=== PATIENT | female | born 1975 | race Two or more races ===

== ENCOUNTER 2020-04-29 15:06 | Outpatient (REF) | payer OTHER, SELFPAY ==
--- NOTE | 2020-04-29 15:12 | MM_ITS ---
EXAMINATION: MM SCREENING DIGITAL BREAST TOMOSYNTHESIS, BILATERAL CLINICAL INFORMATION: Screening. Asymptomatic. The lifetime risk of breast cancer based on the Tyrer-Cuzick Model is 8.1%. COMPARISON: Mammography: August 10, 2018 and studies dating back to June 03, 2016 TECHNIQUE: Digital breast tomosynthesis is performed in both the craniocaudal and mediolateral oblique views along with computer-aided detection (CAD). Synthesized 2D images are generated from the tomosynthesis. FINDINGS: The breasts are almost entirely fatty (ACR BI-RADS breast composition Category a). There are no significant masses, abnormal calcifications, or other abnormalities. MM/MM tomosynthesis screening BI IMPRESSION: There are no significant changes from prior study. ASSESSMENT: BI-RADS 1: Negative RECOMMENDATION: Routine annual mammography screening. This patient's information was entered into a reminder system with a target due date for their next mammogram.
== END 2020-04-29 15:07 | disposition home or self-care (01) ==
LOC: HO.MAMMO 15:06
PROVIDERS: PCP Internal Medicine; Visit Provider Internal Medicine
DX: Z12.31 Encounter for screening mammogram for malignant neoplasm of breast (principal)
CPT/HCPCS: 77063; 77067

== ENCOUNTER 2020-11-13 08:37 | Outpatient (REF) | payer OTHER, SELFPAY ==
[2020-11-13 09:17] LABS: Estimated Average Glucose 140 mg/dL; Hemoglobin A1c % 6.5 %
[2020-11-13 09:39] LABS: Alanine Aminotransferase 9 U/L (0-31); Alkaline Phosphatase 64 U/L (39-117); Anion Gap 9 (12-20); Aspartate Amino Transferase 13 U/L (5-31); Bilirubin Total 0.5 mg/dL (0.0-1.0); Blood Urea Nitrogen 19 mg/dL (9-16); Calcium 9.3 mg/dL (8.4-10.2); Carbon Dioxide 28 mmol/L (22-29); Chloride 106 mmol/L (96-108); Estimated Glomerular Filt Rate > 60; Glucose Random 137 mg/dL (60-115); Potassium 4.7 mmol/L (3.3-5.1); Sodium 138 mmol/L (135-145)
== END 2020-11-13 08:38 | disposition home or self-care (01) ==
LOC: HO.LAB 08:37
PROVIDERS: PCP Internal Medicine; Visit Provider Internal Medicine
DX: E11.9 Type 2 diabetes mellitus without complications (principal); I10 Essential (primary) hypertension
CPT/HCPCS: 36415; 80053; 83036

== ENCOUNTER 2021-05-17 13:44 | Outpatient (REF) | payer OTHER, SELFPAY ==
--- NOTE | ~2021-05-17 | MM_ITS ---
EXAMINATION: MM SCREENING DIGITAL BREAST TOMOSYNTHESIS, BILATERAL CLINICAL INFORMATION: Screening. Asymptomatic. The lifetime risk of breast cancer based on the Tyrer-Cuzick Model is 7%. COMPARISON: Mammography: 04/29/2020, 08/10/2018, 06/30/2017 TECHNIQUE: Digital breast tomosynthesis is performed in both the craniocaudal and mediolateral oblique views along with computer-aided detection (CAD). Synthesized 2D images are generated from the tomosynthesis. FINDINGS: There are scattered areas of fibroglandular density (ACR BI-RADS breast composition Category b). Breast tissue composition borders on predominantly fatty. There are no significant masses, abnormal calcifications, or other abnormalities. Parenchymal pattern is similar to prior studies. There is no mass or architectural abnormality. Scattered bilateral benign round and dermal calcific. Again noted. The axilla and skin contours are unremarkable. MM/MM tomosynthesis screening BI IMPRESSION: No mammographic evidence of malignancy. ASSESSMENT: BI-RADS 2: Benign RECOMMENDATION: Routine annual mammography screening. This patient's information was entered into a reminder system with a target due date for their next mammogram.
== END 2021-05-17 13:45 | disposition home or self-care (01) ==
LOC: HO.MAMMO 13:44
PROVIDERS: Visit Provider Internal Medicine
DX: Z12.31 Encounter for screening mammogram for malignant neoplasm of breast (principal)
CPT/HCPCS: 77063; 77067

== ENCOUNTER 2021-06-29 08:06 | Outpatient (REF) | payer OTHER, SELFPAY ==
[2021-06-29 08:26] LABS: MANUAL DIFF FLAG NO
[2021-06-29 09:01] LABS: Basophils Percent Auto 0.5 % (0-2); Eosinophils Absolute Auto 0.1 X10*3/uL (0.0-0.4); Eosinophils Percent Auto 1.8 % (0-4); Hematocrit 42.2 % (37.0-47.0); Hemoglobin 13.9 g/dl (12.0-16.0); Imm Gran Abs Auto 0.03 X10*3/uL (0.00-0.03); Imm Gran Pct Auto 0.4 % (0.0-0.4); Lymphocytes Absolute Auto 1.8 X10*3/uL (1.2-4.9); Lymphocytes Percent Auto 24.7 % (20-40); Mean Corpuscular HGB Conc 32.9 g/dl (31.0-35.0); Mean Corpuscular Hemoglobin 30.3 pg (27.0-33.0); Mean Corpuscular Volume 92.1 fL (80.0-98.0); Monocytes Absolute Auto 0.6 X10*3/uL (0.1-1.2); Monocytes Percent Auto 7.7 % (2-11); Neutrophils Absolute Auto 4.7 x10*3/uL (2.0-8.3); Neutrophils Percent Auto 64.9 % (45-73); Platelet Count 296 X10*3/uL (160-400); Red Blood Count 4.58 X10*6/uL (4.20-5.50); Red Cell Distribution Width 12.5 % (11.0-16.0); White Blood Count 7.3 X10*3/uL (4.8-10.8)
[2021-06-29 09:09] LABS: Estimated Average Glucose 137 mg/dL; Hemoglobin A1c % 6.4 %
[2021-06-29 09:39] LABS: Creatinine Urine 112.79 mg/dL; Microalbum/Creatinine Ratio Ur 4.4 ug/mg cr
[2021-06-29 09:44] LABS: Alanine Aminotransferase 12 U/L (0-31); Albumin Level 4.1 g/dL (3.5-5.0); Alkaline Phosphatase 72 U/L (39-117); Anion Gap 11 (12-20); Aspartate Amino Transferase 16 U/L (5-31); Bilirubin Total 0.5 mg/dL (0.0-1.0); Blood Urea Nitrogen 14 mg/dL (9-16); Calcium 9.2 mg/dL (8.4-10.2); Carbon Dioxide 28 mmol/L (22-29); Chloride 103 mmol/L (96-108); Cholesterol 146 mg/dL; Estimated Glomerular Filt Rate > 60; Glucose Random 111 mg/dL (60-115); HDL Cholesterol 42 mg/dL; LDL Cholesterol Calculated 90 mg/dl; Potassium 4.4 mmol/L (3.3-5.1); Sodium 138 mmol/L (135-145); Total Protein 7.2 g/dL (6.5-8.0); Triglycerides 73 mg/dL
== END 2021-06-29 08:07 | disposition home or self-care (01) ==
LOC: HO.LAB 08:06
PROVIDERS: PCP Internal Medicine; Visit Provider Internal Medicine
DX: E11.9 Type 2 diabetes mellitus without complications (principal); I10 Essential (primary) hypertension; N92.4 Excessive bleeding in the premenopausal period; R80.9 Proteinuria, unspecified
CPT/HCPCS: 36415; 80053; 80061; 82043; 83036; 85025

== ENCOUNTER 2021-10-04 07:45 | Outpatient (REF) | payer OTHER, SELFPAY ==
[2021-10-04 08:27] LABS: Estimated Average Glucose 140 mg/dL; Hemoglobin A1c % 6.5 %
[2021-10-04 08:43] LABS: Alanine Aminotransferase 15 U/L (0-31); Albumin Level 4.2 g/dL (3.5-5.0); Alkaline Phosphatase 79 U/L (39-117); Anion Gap 12 (12-20); Aspartate Amino Transferase 17 U/L (5-31); Bilirubin Total 0.6 mg/dL (0.0-1.0); Blood Urea Nitrogen 16 mg/dL (9-16); Calcium 9.7 mg/dL (8.4-10.2); Carbon Dioxide 28 mmol/L (22-29); Chloride 102 mmol/L (96-108); Estimated Glomerular Filt Rate > 60; Glucose Random 119 mg/dL (60-115); Potassium 4.5 mmol/L (3.3-5.1); Sodium 137 mmol/L (135-145); Total Protein 7.7 g/dL (6.5-8.0)
== END 2021-10-04 07:46 | disposition home or self-care (01) ==
LOC: HO.LAB 07:45
PROVIDERS: PCP Internal Medicine; Visit Provider Internal Medicine
DX: Z00.00 Encounter for general adult medical examination without abnormal findings (principal); E78.00 Pure hypercholesterolemia, unspecified; E11.9 Type 2 diabetes mellitus without complications; I10 Essential (primary) hypertension
CPT/HCPCS: 36415; 80053; 83036

== ENCOUNTER 2022-02-01 08:07 | Outpatient (REF) | payer OTHER, SELFPAY ==
[2022-02-01 09:15] LABS: Estimated Average Glucose 128 mg/dL; Hemoglobin A1c % 6.1 %
[2022-02-01 09:42] LABS: Alanine Aminotransferase 14 U/L (0-31); Albumin Level 4.1 g/dL (3.5-5.0); Alkaline Phosphatase 70 U/L (39-117); Anion Gap 15 (12-20); Aspartate Amino Transferase 14 U/L (5-31); Bilirubin Total 0.7 mg/dL (0.0-1.0); Blood Urea Nitrogen 14 mg/dL (9-16); Carbon Dioxide 27 mmol/L (22-29); Chloride 100 mmol/L (96-108); Cholesterol 153 mg/dL; Estimated Glomerular Filt Rate > 60; Glucose Random 102 mg/dL (60-115); HDL Cholesterol 49 mg/dL; LDL Cholesterol Calculated 85 mg/dl; Potassium 4.3 mmol/L (3.3-5.1); Sodium 138 mmol/L (135-145); Total Protein 7.2 g/dL (6.5-8.0); Triglycerides 96 mg/dL
[2022-02-01 09:52] LABS: HIV AB/AG Nonreactive (Nonreactive); HIV Num 1 0.11 S/CO (0.00-0.99)
[2022-02-01 19:10] LABS: CT PCR NOT DETECTED (Not Detect.); NG PCR NOT DETECTED (Not Detect.)
[2022-02-07 22:52] LABS: Treponema pallidum Ab FTA ABS Nonreactive (Nonreactive)
== END 2022-02-01 08:08 | disposition home or self-care (01) ==
LOC: HO.LAB 08:07
PROVIDERS: PCP Internal Medicine; Visit Provider Internal Medicine
DX: Z11.3 Encounter for screening for infections with a predominantly sexual mode of transmission (principal); Z11.4 Encounter for screening for human immunodeficiency virus [HIV]; M54.50 Low back pain, unspecified; I10 Essential (primary) hypertension; E78.00 Pure hypercholesterolemia, unspecified; E11.9 Type 2 diabetes mellitus without complications
CPT/HCPCS: 80053; 80061; 83036; 86780; 87389; 87491; 87591

== ENCOUNTER 2022-03-09 13:42 | Outpatient (REF) | payer OTHER, SELFPAY ==
--- NOTE | ~2022-03-09 | US_ITS ---
EXAMINATION: US PELVIS CLINICAL INFORMATION: Pain COMPARISON: None TECHNIQUE: Ultrasound of the pelvis is performed using both transabdominal and transvaginal transducers along with Doppler. Transvaginal imaging is performed due to inadequate visualization transabdominally. FINDINGS: The uterus is anteverted and measures 10.4 x 4.1 x 4.8 cm in dimension. No focal uterine lesion is seen. Endometrial thickness measures 1.1 cm. The endometrium is very heterogeneous appearing with multiple small cystic areas. The ovaries are normal. The right ovary measures 2.8 x 2 x 1.6 cm. The left ovary measures 2.5 x 2.4 x 1.3 cm. There is no fluid in the pelvis. US/US pelvic and transvaginal IMPRESSION: Abnormal appearing endometrium with multiple small cystic areas. Short-term follow-up pelvic ultrasound to see if this is a persistent finding or tissue sampling recommended.
== END 2022-03-09 13:43 | disposition home or self-care (01) ==
LOC: HO.US 13:42
PROVIDERS: Visit Provider Obstetrics & Gynecology
DX: R10.2 Pelvic and perineal pain (principal)
CPT/HCPCS: 76830; 76856

== ENCOUNTER 2022-05-23 13:52 | Outpatient (REF) | payer OTHER, SELFPAY ==
--- NOTE | ~2022-05-23 | MM_ITS ---
EXAMINATION: MM SCREENING DIGITAL BREAST TOMOSYNTHESIS, BILATERAL CLINICAL INFORMATION: Screening. Asymptomatic. The lifetime risk of breast cancer based on the Tyrer-Cuzick Model is 4%. COMPARISON: Mammography: 05/17/2021, 04/29/2020, 08/10/2018 TECHNIQUE: Digital breast tomosynthesis is performed in both the craniocaudal and mediolateral oblique views along with computer-aided detection (CAD). Synthesized 2D images are generated from the tomosynthesis. Additional left CC view is provided. FINDINGS: There are scattered areas of fibroglandular density (ACR BI-RADS breast composition Category b). There are no significant masses, abnormal calcifications, or other abnormalities. Breast tissue composition borders on predominantly fatty. Background stromal markings are stable. There are again scattered benign round, rim, and dermal calcifications. No significant changes. MM/MM tomosynthesis screening BI IMPRESSION: No mammographic evidence of malignancy. ASSESSMENT: BI-RADS 1: Negative RECOMMENDATION: Routine annual mammography screening. This patient's information was entered into a reminder system with a target due date for their next mammogram.
== END 2022-05-23 13:53 | disposition home or self-care (01) ==
LOC: HO.MAMMO 13:52
PROVIDERS: PCP Internal Medicine; Visit Provider Internal Medicine
DX: Z12.31 Encounter for screening mammogram for malignant neoplasm of breast (principal)
CPT/HCPCS: 77063; 77067

== ENCOUNTER 2022-06-20 15:19 | Outpatient (REF) | payer OTHER, SELFPAY ==
[2022-06-20 16:37] LABS: Estimated Average Glucose 143 mg/dL; Hemoglobin A1c % 6.6 %
[2022-06-20 16:45] LABS: Alanine Aminotransferase 10 U/L (0-31); Albumin Level 4.3 g/dL (3.5-5.0); Alkaline Phosphatase 78 U/L (39-117); Anion Gap 17 (12-20); Aspartate Amino Transferase 15 U/L (5-31); Bilirubin Total 0.7 mg/dL (0.0-1.0); Blood Urea Nitrogen 12 mg/dL (9-16); Calcium 9.4 mg/dL (8.4-10.2); Carbon Dioxide 26 mmol/L (22-29); Chloride 98 mmol/L (96-108); Estimated Glomerular Filt Rate > 60; Glucose Random 125 mg/dL (60-115); Potassium 3.8 mmol/L (3.3-5.1); Sodium 137 mmol/L (135-145); Total Protein 7.7 g/dL (6.5-8.0)
[2022-06-20 17:02] LABS: Creatinine Urine 62.89 mg/dL; Microalbum/Creatinine Ratio Ur 71.5 ug/mg cr
== END 2022-06-20 15:20 | disposition home or self-care (01) ==
LOC: HO.LAB 15:19
PROVIDERS: PCP Internal Medicine; Visit Provider Internal Medicine
DX: E11.9 Type 2 diabetes mellitus without complications (principal); E78.00 Pure hypercholesterolemia, unspecified; I10 Essential (primary) hypertension; R82.90 Unspecified abnormal findings in urine
CPT/HCPCS: 36415; 80053; 82043; 83036; 87086

== ENCOUNTER 2022-12-06 08:04 | Outpatient (REF) | payer OTHER, SELFPAY ==
[2022-12-06 09:02] LABS: Estimated Average Glucose 148 mg/dL; Hemoglobin A1c % 6.8 %
[2022-12-06 09:31] LABS: Alanine Aminotransferase 15 U/L (0-31); Albumin Level 4.1 g/dL (3.5-5.0); Alkaline Phosphatase 82 U/L (39-117); Anion Gap 11 (12-20); Aspartate Amino Transferase 14 U/L (5-31); Bilirubin Total 0.7 mg/dL (0.0-1.0); Blood Urea Nitrogen 16 mg/dL (9-16); Calcium 9.5 mg/dL (8.4-10.2); Carbon Dioxide 29 mmol/L (22-29); Chloride 102 mmol/L (96-108); Estimated Glomerular Filt Rate > 60; Glucose Random 117 mg/dL (60-115); Potassium 4.2 mmol/L (3.3-5.1); Sodium 138 mmol/L (135-145); Total Protein 7.7 g/dL (6.5-8.0)
== END 2022-12-06 08:05 | disposition home or self-care (01) ==
LOC: HO.LAB 08:04
PROVIDERS: PCP Internal Medicine; Visit Provider Internal Medicine
DX: Z00.00 Encounter for general adult medical examination without abnormal findings (principal); E78.00 Pure hypercholesterolemia, unspecified; E11.9 Type 2 diabetes mellitus without complications; R80.9 Proteinuria, unspecified
CPT/HCPCS: 36415; 80053; 83036

== ENCOUNTER 2023-05-25 13:55 | Outpatient (REF) | payer OTHER, SELFPAY | END 2023-05-25 13:56 | disposition home or self-care (01) | LOC: HO.MAMMO 13:55 | PROVIDERS: PCP Internal Medicine; Visit Provider Internal Medicine | DX: Z12.31 Encounter for screening mammogram for malignant neoplasm of breast (principal) | CPT/HCPCS: 77063; 77067 ==

== ENCOUNTER → 2023-05-25 14:00 | Outpatient (BNV) | payer OTHER, SELFPAY | PROVIDERS: PCP Internal Medicine; Visit Provider Radiology Diagnostic Radiology | DX: Z12.31 Encounter for screening mammogram for malignant neoplasm of breast (principal) | CPT/HCPCS: 77063; 77067 ==

== ENCOUNTER 2023-09-19 08:26 | Outpatient (REF) | payer OTHER, SELFPAY ==
[2023-09-19 08:45] LABS: MANUAL DIFF FLAG NO
[2023-09-19 09:14] LABS: Basophils Absolute Auto 0.1 X10*3/uL (0.0-0.2); Basophils Percent Auto 0.6 % (0-2); Eosinophils Absolute Auto 0.1 X10*3/uL (0.0-0.4); Eosinophils Percent Auto 1.6 % (0-4); Hematocrit 44.3 % (37.0-47.0); Hemoglobin 14.8 g/dl (12.0-16.0); Imm Gran Abs Auto 0.04 X10*3/uL (0.00-0.03); Imm Gran Pct Auto 0.5 % (0.0-0.4); Lymphocytes Absolute Auto 2.1 X10*3/uL (1.2-4.9); Lymphocytes Percent Auto 24.8 % (20-40); Mean Corpuscular HGB Conc 33.4 g/dl (31.0-35.0); Mean Corpuscular Hemoglobin 30.5 pg (27.0-33.0); Mean Corpuscular Volume 91.3 fL (80.0-98.0); Mean Platelet Volume 10.9 fL (9.4-12.3); Monocytes Absolute Auto 0.6 X10*3/uL (0.1-1.2); Monocytes Percent Auto 7.7 % (2-11); Neutrophils Absolute Auto 5.4 x10*3/uL (2.0-8.3); Neutrophils Percent Auto 64.8 % (45-73); Platelet Count 275 X10*3/uL (160-400); Red Blood Count 4.85 X10*6/uL (4.20-5.50); Red Cell Distribution Width 12.4 % (11.0-16.0); White Blood Count 8.3 X10*3/uL (4.8-10.8)
[2023-09-19 09:23] LABS: Estimated Average Glucose 154 mg/dL
[2023-09-19 09:44] LABS: Alanine Aminotransferase 19 U/L (0-31); Albumin Level 4.4 g/dL (3.5-5.0); Alkaline Phosphatase 73 U/L (39-117); Anion Gap 12 (12-20); Aspartate Amino Transferase 18 U/L (5-31); Bilirubin Total 0.6 mg/dL (0.0-1.0); Blood Urea Nitrogen 17 mg/dL (9-16); Calcium 9.8 mg/dL (8.4-10.2); Carbon Dioxide 29 mmol/L (22-29); Chloride 102 mmol/L (96-108); Cholesterol 117 mg/dL (<200); Estimated Glomerular Filt Rate > 60; Glucose Random 119 mg/dL (60-115); HDL Cholesterol 43 mg/dL (>40); LDL Cholesterol Calculated 61 mg/dL (<100); Potassium 4.4 mmol/L (3.3-5.1); Sodium 139 mmol/L (135-145); Total Protein 7.9 g/dL (6.5-8.0); Triglycerides 65 mg/dL (<150)
[2023-09-19 10:49] LABS: Creatinine Urine 115.11 mg/dL; Microalbum/Creatinine Ratio Ur 20.8 ug/mg cr (<30)
== END 2023-09-19 08:27 | disposition home or self-care (01) ==
LOC: HO.LAB 08:26
PROVIDERS: PCP Internal Medicine; Visit Provider Internal Medicine
DX: E11.9 Type 2 diabetes mellitus without complications (principal); I10 Essential (primary) hypertension; L71.9 Rosacea, unspecified; Z68.42 Body mass index [BMI] 45.0-49.9, adult
CPT/HCPCS: 36415; 80053; 80061; 82043; 82570; 83036; 85025

== ENCOUNTER 2024-01-01 07:59 | Outpatient (REF) | payer OTHER, SELFPAY ==
[2024-01-01 09:29] LABS: Estimated Average Glucose 143 mg/dL; Hemoglobin A1c % 6.6 % (<6.0)
[2024-01-01 09:43] LABS: Alanine Aminotransferase 13 U/L (0-31); Albumin Level 4.2 g/dL (3.5-5.0); Alkaline Phosphatase 75 U/L (39-117); Anion Gap 9 (12-20); Aspartate Amino Transferase 16 U/L (5-31); Bilirubin Total 0.6 mg/dL (0.0-1.0); Blood Urea Nitrogen 15 mg/dL (9-16); Calcium 9.3 mg/dL (8.4-10.2); Carbon Dioxide 30 mmol/L (22-29); Chloride 103 mmol/L (96-108); Estimated Glomerular Filt Rate > 60; Glucose Random 107 mg/dL (60-115); Potassium 4.2 mmol/L (3.3-5.1); Sodium 138 mmol/L (135-145); Total Protein 7.5 g/dL (6.5-8.0)
== END 2024-01-01 08:00 | disposition home or self-care (01) ==
LOC: HO.LAB 07:59
PROVIDERS: PCP Internal Medicine; Visit Provider Internal Medicine
DX: Z00.00 Encounter for general adult medical examination without abnormal findings (principal); E78.00 Pure hypercholesterolemia, unspecified; I10 Essential (primary) hypertension; E11.9 Type 2 diabetes mellitus without complications
CPT/HCPCS: 36415; 80053; 83036

== ENCOUNTER 2024-05-19 07:55 | Outpatient (REF) | payer OTHER, SELFPAY ==
[2024-05-19 08:51] LABS: Estimated Average Glucose 146 mg/dL; Hemoglobin A1c % 6.7 % (<6.0); Total Hemoglobin (HGBA1C) 3738.3625 umol/L
[2024-05-19 09:11] LABS: Alanine Aminotransferase 15 U/L (0-31); Albumin Level 4.2 g/dL (3.5-5.0); Alkaline Phosphatase 84 U/L (39-117); Anion Gap 12 (12-20); Aspartate Amino Transferase 20 U/L (5-31); Bilirubin Total 0.9 mg/dL (0.0-1.0); Blood Urea Nitrogen 14 mg/dL (9-16); Calcium 9.2 mg/dL (8.4-10.2); Carbon Dioxide 26 mmol/L (22-29); Chloride 104 mmol/L (96-108); Estimated Glomerular Filt Rate > 60; Glucose Random 122 mg/dL (60-115); Potassium 4.3 mmol/L (3.3-5.1); Sodium 138 mmol/L (135-145); Total Protein 7.8 g/dL (6.5-8.0)
== END 2024-05-19 07:56 | disposition home or self-care (01) ==
LOC: HO.LAB 07:55
PROVIDERS: PCP Internal Medicine; Visit Provider Internal Medicine
DX: E11.9 Type 2 diabetes mellitus without complications (principal); B96.5 Pseudomonas (aeruginosa) (mallei) (pseudomallei) as the cause of diseases classified elsewhere; I10 Essential (primary) hypertension; Z68.42 Body mass index [BMI] 45.0-49.9, adult
CPT/HCPCS: 36415; 80053; 83036

== ENCOUNTER 2024-05-28 14:21 | Outpatient (REF) | payer OTHER, SELFPAY ==
--- NOTE | ~2024-05-28 | MM_ITS ---
EXAMINATION: MM SCREENING DIGITAL BREAST TOMOSYNTHESIS, BILATERAL CLINICAL INFORMATION: Screening. Asymptomatic. COMPARISON: Mammography: Comparison is made with available priors TECHNIQUE: Digital breast mammography with tomosynthesis is performed in both the craniocaudal and mediolateral oblique views along with computer-aided detection (CAD). FINDINGS: There are scattered areas of fibroglandular density (ACR BI-RADS breast composition Category b). There are no significant masses, abnormal calcifications, or other abnormalities. MM/MM tomosynthesis screening BI IMPRESSION: No mammographic evidence of malignancy. ASSESSMENT: BI-RADS BI-RADS 1 - Negative RECOMMENDATION: Routine annual mammography screening. 1 year F/U This examination should not preclude the clinical evaluation of a suspicious palpable abnormality. This patient's information was entered into a reminder system with a target due date for their next mammogram. Electronically signed by: Verona Olson DO 06/04/2024 11:21 AM [facility] [place]
== END 2024-05-28 14:22 | disposition home or self-care (01) ==
LOC: HO.MAMMO 14:21
PROVIDERS: PCP Internal Medicine; Referring Provider Obstetrics & Gynecology; Visit Provider Internal Medicine
DX: Z12.31 Encounter for screening mammogram for malignant neoplasm of breast (principal)
CPT/HCPCS: 77063; 77067

== ENCOUNTER → 2024-05-28 14:30 | Outpatient (BNV) | payer OTHER, SELFPAY | PROVIDERS: PCP Internal Medicine; Referring Provider Obstetrics & Gynecology; Visit Provider Internal Medicine | DX: Z12.31 Encounter for screening mammogram for malignant neoplasm of breast (principal) | CPT/HCPCS: 77063; 77067 ==

== ENCOUNTER 2024-08-21 07:49 | Outpatient (REF) | payer OTHER, SELFPAY ==
--- OUTSIDE RECORDS SUMMARY | 2024-08-21 07:53 | XMS_ITS | Clinical Summary ---
Author Organization [facility] Address [address] [place] [id number] Phone Care Team Providers [employer] Internet Sales Consultant Name Role Phone Nila Lebron MD Primary Care Provider [phone] Allergies Active Allergy Reactions Criticality Noted Date Comments Lisinopril Cough Low 09/25/2023 Oxycodone-Acetaminophen GI intolerance 05/22/19 25 Medications polyethylene glycol (Golytely) 236-22.74-6.74 -5.86 gram solution Take 4L by mouth once for one dose. May substitue any PEG. Starting at 6PM the night before your procedure drink 1 8oz glasses at your own pace until you complete half of the gallon. Finish 2nd half of the gallon 5 hours before your procedure. 4000 mL 4 Active bisacodyL (DULCOLAX) 5 mg EC tablet Take 2 tablets by mouth right before beginning bowel prep. See instructions provided by the office 2 tablet 4 Active losartan-hydroC HLOROthiazide (HYZAAR) 100-12.5 mg per tablet Take 1 tablet by mouth 1 (one) time each day. 4 Active Janumet 50-1,000 mg per tablet Take 1 tablet by mouth 2 (two) times a day. 4 Active atorvastatin (LIPITOR) 20 mg tablet Take 1 tablet (20 mg total) by mouth 1 (one) time each day. Active Jardiance 10 mg tablet Take 1 tablet (10 mg total) by mouth 1 (one) time each day in the morning. 4 Active Surgical History Surgery Date Site/Laterality Comments UTERINE FIBROID SURGERY SECTION, LOW TRANSVERSE Medical History Medical History Date Comments Hypertension Diabetes mellitus (CMS/HCC) Social History Tobacco Use Types Packs/Day Years Used Date Smoking Tobacco: Never Smokeless Tobacco: Never Tobacco Cessation:Counseling Given: Not Answered Alcohol Use Standard Drinks/Week Comments Yes 0 (1 standard drink = 0.6 oz pur e alcohol) OCC Interpersonal Safety Answer Date Record ed Physical Abuse 05/22/2024 Verbal Abuse 05/22/2024 Comments No Sex and Gender Information Value Date Recorded Sex Assigned at Not on file Legal Sex Female 4:55 AM EST Gender Identity Not on file Sexual Orientation Not on file Obstetrics History Last Filed Vital Signs Vital Sign Reading Time Taken Comments Blood Pressure 122/84 05/22/2024 10:53 AM EST Pulse 70 05/22/2024 10:53 AM EST Temperature 36.3 ??C (97.4 ??F) 05/22/2024 9:42 AM ES T Respiratory Rate 16 05/22/2024 10:53 AM EST Oxygen Saturation 100% 05/22/2024 10:53 AM EST Inhaled Oxygen Concentration - - Weight 104 kg (230 lb) 05/22/2024 9:42 AM EST Height 154.9 cm (5' 1 ) 05/22/2024 9:42 AM EST Body Mass Index 43.46 05/22/2024 9:42 AM EST Plan of Treatment Health Maintenance Due Date Last Done Comments Breast Cancer Screening 1975 DTaP,Tdap,and Td Vaccines (1 - Tdap) 1993 Hepatitis B Vaccines (1 of 3 - 19+ 3-dose series) 1993 Cervical Cancer Screening: Pap Smear 08/07/1995 Depression Screening 12/11/2023 HIV Screening 12/11/2023 Hepatitis C Screening 12/11/2023 Medicare Annual Wellness Visit 12/11/2023 Social Influencers of Health Screening 12/11/2023 COVID-19 Vaccine ( season) 2024 06/30/2021, 05/20/2021, 11/15/2020, Additional history exists Influenza Vaccine (#1) 2024 05/20/2021, 2020 Pneumococcal Vaccine: 50+ Years (1 of 1 - PCV) 2024 Zoster Vaccines (1 of 2) 2024 Colorectal Cancer Screening: Colonoscopy 05/22/2034 05/22/2024 HIB Vaccines Aged Out No longer eligi ble based on patient's age to complete this topic HPV Vaccines Aged Out No longer eligi ble based on patient's age to complete this topic Hepatitis A Vaccines Aged Out No long er eligible based on patient's age to complete this topic IPV Vaccines Aged Out No longer eligi ble based on patient's age to complete this topic MMR Vaccines Aged Out No longer eligi ble based on patient's age to complete this topic Meningococcal ACWY Vaccine Aged Out N o longer eligible based on patient's age to complete this topic Meningococcal B Vacine Aged Out No lo nger eligible based on patient's age to complete this topic Pneumococcal Vaccine: Pediatrics (0 to 5 Years) and At-Risk Patients (6 to 64 Years) Aged Out No longer eligible based on patient's age to complete this topic RSV Immunization Patients Under 20 months Aged Out No longer eligible based on patient's age to complete this topic Varicella Vaccines Aged Out No longer eligible based on patient's age to complete this topic Procedures Procedure Name Priority Date/Time Associated Diagnosis Comments COLONOSCOPY Routine 05/22/2024 10:30 AM EST Screen for colon cancer from Last 3 Months or Most Recently Relevant to Health Maintenance Results * COLONOSCOPY Anesthesia - MAC; [facility] ENDOSCOPY (05/22/2024 10:30 AM EST) Anatomical Region Laterality Modality Endoscopy 05/22/2024 10:1 6 AM EST Impressions 05/22/2024 10:32 AM EST - Internal hemorrhoids. ? - The examination was otherwise normal. ? - No specimens collected. Recommendation: ?- Discharge patient to home. ? - Repeat colonoscopy in 10 years for screening ? purposes. Narrative 05/22/2024 10:32 AM EST [facility] GI Patient Name: Becky Mckinnon Procedure Date: 05/22/2024 10:16 AM Date of : 1975 Age: 48 Gender: Female Note Status: Finalized Attending MD: Eli Kirk MD, Procedure Date No Time: 05/22/2024 Procedure: ? Colonoscopy Indications: ? Screening for colorectal malignant neoplasm Providers: ? Eli Kirk MD Referring MD: ?Eli Kirk MD Medicines: ? Monitored Anesthesia Care Complications: ? No immediate complications. Estimated Blood Loss: ? Estimated blood loss: none. Procedure: ? Pre-Anesthesia Assessment: ? - Prior to the procedure, a History and Physical was ? performed, and patient medications and allergies were ? reviewed. The patient is competent. The risks and ? benefits of the procedure and the sedation options and ? risks were discussed with the patient. All questions ? were answered and informed consent was obtained. ? Patient identification and proposed procedure were ? verified by the physician, the nurse, the linux server engineer ? and the driver license technician in the pre-procedure area in the ? endoscopy suite. Mental Status Examination: alert and ? oriented. Airway Examination: normal oropharyngeal ? airway and neck mobility. Respiratory Examination: ? clear to auscultation. CV Examination: normal. ? Prophylactic Antibiotics: The patient does not require ? prophylactic antibiotics. Prior Anticoagulants: The ? patient has taken no anticoagulant or antiplatelet ? agents. ASA Grade Assessment: II - A patient with mild ? systemic disease. After reviewing the risks and ? benefits, the patient was deemed in satisfactory ? condition to undergo the procedure. The anesthesia ? plan was to use monitored anesthesia care (MAC). ? Immediately prior to administration of medications, ? the patient was re-assessed for adequacy to receive ? sedatives. The heart rate, respiratory rate, oxygen ? saturations, blood pressure, adequacy of pulmonary ? ventilation, and response to care were monitored ? throughout the procedure. The physical status of the ? patient was re-assessed after the procedure. ? After I obtained informed consent, the scope was ? passed under direct vision. Throughout the procedure, ? the patient's blood pressure, pulse, and oxygen ? saturations were monitored continuously. The ? Colonoscope was introduced through the anus and ? advanced to the cecum, identified by appendiceal ? orifice and ileocecal valve. The colonoscopy was ? performed without difficulty. The patient tolerated ? the procedure well. The quality of the bowel ? preparation was good. Findings: ?The perianal and digital rectal examinations were ? normal. ? Internal hemorrhoids were found during retroflexion. ? The hemorrhoids were Grade I (internal hemorrhoids ? that do not prolapse). ? The exam was otherwise without abnormality. Procedure Code(s): ? --- Professional --- ? G0121, Colorectal cancer screening; colonoscopy on ? individual not meeting criteria for high risk Diagnosis Code(s): ? --- Professional --- ? Z12.11, Encounter for screening for malignant neoplasm ? of colon CPT copyright 2020 [employer]. All rights reserved. The codes documented in this report are preliminary and upon icd 9 coder review may be revised to meet current compliance requirements. Eli Kirk MD 05/22/2024 10:32:11 AM This report has been signed electronically.Eli Kirk MD Number of Addenda: 0 Note Initiated On: 05/22/2024 10:16 AM Scope Withdrawal Time: 0 hours 6 minutes 26 seconds Scope In: 10:21:05 AM Scope Out: 10:30:38 AM ? Endoscopy Department at [facility] - [address] [place] [address], ? [place] [address] Procedure Note Eli Kirk MD - 05/22/2024 [facility] GI Patient Name: Becky Mckinnon Procedure Date: 05/22/2024 10:16 AM Date of : 1975 Age: 48 Gender: Female Note Status: Finalized Attending MD: Eli Kirk MD, Procedure Date No Time: 05/22/2024 Procedure: Colonoscopy Indications: Screening for colorectal malignant neoplasm Providers: Eli Kirk MD Referring MD: Eli Kirk MD Medicines: Monitored Anesthesia Care Complications: No immediate complications. Estimated Blood Loss: Estimated blood loss: none. Procedure: Pre-Anesthesia Assessment: - Prior to the procedure, a History and Physicalwas performed, and patient medications and allergieswere reviewed. The patient is competent. The risks and benefits of the procedure and the sedation optionsand risks were discussed with the patient. Allquestions were answered and informed consent was obtained. Patient identification and proposed procedure were verified by the physician, the nurse, theanesthetist and the driver license technician in the pre-procedure area in the endoscopy suite. Mental Status Examination: alertand oriented. Airway Examination: normal oropharyngeal airway and neck mobility. Respiratory Examination: clear to auscultation. CV Examination: normal. Prophylactic Antibiotics: The patient does notrequire prophylactic antibiotics. Prior Anticoagulants: The patient has taken no anticoagulant or antiplatelet agents. ASA Grade Assessment: II - A patient withmild systemic disease. After reviewing the risks and benefits, the patient was deemed in satisfactory condition to undergo the procedure. The anesthesia plan was to use monitored anesthesia care (MAC). Immediately prior to administration of medications, the patient was re-assessed for adequacy to receive sedatives. The heart rate, respiratory rate, oxygen saturations, blood pressure, adequacy of pulmonary ventilation, and response to care were monitored throughout the procedure. The physical status ofthe patient was re-assessed after the procedure. After I obtained informed consent, the scope was passed under direct vision. Throughout theprocedure, the patient's blood pressure, pulse, and oxygen saturations were monitored continuously. The Colonoscope was introduced through the anus and advanced to the cecum, identified by appendiceal orifice and ileocecal valve. The colonoscopy was performed without difficulty. The patient tolerated the procedure well. The quality of the bowel preparation was good. Findings: The perianal and digital rectal examinations were normal. Internal hemorrhoids were found duringretroflexion. The hemorrhoids were Grade I (internal hemorrhoids that do not prolapse). The exam was otherwise without abnormality. Procedure Code(s): --- Professional --- G0121, Colorectal cancer screening; colonoscopy on individual not meeting criteria for high risk Diagnosis Code(s): --- Professional --- Z12.11, Encounter for screening for malignantneoplasm of colon CPT copyright 2020 [employer]. All rights reserved. The codes documented in this report are preliminary and upon icd 9 coder reviewmay be revised to meet current compliance requirements. Eli Kirk MD 05/22/2024 10:32:11 AM This report has been signed electronically.Eli Kirk MD Number of Addenda: 0 Note Initiated On: 05/22/2024 10:16 AM Scope Withdrawal Time: 0 hours 6 minutes 26 seconds Scope In: 10:21:05 AM Scope Out: 10:30:38 AM Endoscopy Department at [facility] - [address] [place] [id number] IMPRESSION: - Internal hemorrhoids. - The examination was otherwise normal. - No specimens collected. Recommendation: - Discharge patient to home. - Repeat colonoscopy in 10 years for screening purposes. Eli Kirk MD GI~PROCEDURE ORDERABLES Fin al Result from Last 3 Months or Most Recently Relevant to Health Maintenance Insurance [employer] - [place] Member Subscriber Plan / Payer (Ef fective 2011-Present) Name:Becky Mckinnon Relation to Subscriber:Self Name:Becky Mckinnon Payer ID:[id number] Type:Not on file Address: [facility] [id number] [address] Care Teams [employer] Internet Sales Consultant Relationship Specialty Start Date End Date Nila Lebron MD [address] [place] [address] [address] [place] [id number] [facility] - General 09/25/23
--- OUTSIDE RECORDS SUMMARY | 2024-08-21 07:53 | XMS_ITS | Data Portability ---
Author Organization [place] - [facility],, COMFORT MACHUCA MD Address [address] [address] Care Team Providers Care Field Care Manager Name Role Phone VERÓNICA FORD Primary Care Provider [phone] Assessment No assessment recorded. Plan of Treatment Reminders Order Date Submit Date Provider Last Modified By Organization Details Last Modified Time Details Appointments None recorded. Lab cytology report, thin prep, smear or scraping, cervical or vaginal 2023 024 RANDY [facility] (Centralized Electronic Ordering - All Locations), Patient Can Go To The Location Of Their Choice, 4 18:06:00 CBC w/ auto diff 2023 024 [email or web address] [facility] (Centralized Electronic Ordering - All Locations), Patient Can Go To The Location Of Their Choice, 5 07:23:43 iron + TIBC + ferritin, serum 2023 024 tmeczywor [facility] (Centralized Electronic Ordering - All Locations), Patient Can Go To The Location Of Their Choice, 5 07:23:43 TSH + free T4, serum 2023 024 tmeczywor [facility] (Centralized Electronic Ordering - All Locations), Patient Can Go To The Location Of Their Choice, 5 07:23:43 beta-HCG, qualitativ e, serum or plasma 2023 024 tmeczywor [facility] (Centralized Electronic Ordering - All Locations), Patient Can Go To The Location Of Their Choice, 5 07:23:43 hemoglobin , gastrointe stinal, stool 2023 024 [email or web address] 1 In-Office Order, Internal Use Only DO Not Attach Compendium DO Not Attach Compendium, Do Not Delete/merge, [id number] 10:08:56 pap test, thinprep, cervical 2022 023 [facility] (Centralized Electronic Ordering - All Locations), Patient Can Go To The Location Of Their Choice, [id number] 3 07:32:44 fecal occult blood, stool 2022 023 [email or web address] 1 In-Office Order, Internal Use Only DO Not Attach Compendium DO Not Attach Compendium, Do Not Delete/merge, [id number] 3 13:25:05 biopsy, endometria l [address] [facility] - [facility] Locations), Patient Can Go To The Location Of Their Choice, [id number] 2 07:32:14 pap test, thinprep, cervical 2021 [facility]22 [facility]), Patient Can Go To The Location Of Their Choice, [id number] 2 07:32:05 fecal occult blood, stool 2021 022 [email or web address] In-Office Order, Internal Use Only DO Not Attach Compendium DO Not Attach Compendium, Do Not Delete/merge, [id number] 2 15:36:47 Referral gynecologi c surgery referral - portion of hyperplast ic endometria l polyp, without atypia, removed in office, may be remaining polyp in situ, for possible D and C with hysterosco py 2021 022 [facility]? [facility], [address] [place] [address], [facility] [address], [place], [address], 3 08:02:51 Procedures None recorded. Surgeries None recorded. Imaging MAMMO, screening, digital, bilateral - Breast Aspiration and/or Biopsy if needed 2023 024 sayra [facility] (Mammo), [address] [facility] [place], [address], 4 10:44:39 MAMMO, screening, digital, bilateral - Breast Aspiration and/or Biopsy if needed 2022 023 [facility] (Mammo), [address] [facility] [place], [address], 4 07:41:07 MAMMO, screening, digital, bilateral 2021 022 [facility] (Mammo), [address] [facility] [place], [address], 4 07:40:29 US, pelvis, transabdom inal + transvagin al - deep dyspareuni a for a year 2021 022 [facility] (Imaging), [address] [place] [address], [place], [address], 2 15:39:14 Medication Orders Lo Loestrin Fe 1 mg-10 mcg (24)/10 mcg (2) tablet 2023 024 [id number], [address] [place], [place], [id number], 4 10:09:15 Patient TargetsNo targets recorded. Patient Instructions Encounter Date Encounter Id Patient Instructions Last Modified By Organization Details Last Modified Time 03/07/2022 [id number] learning about healthy weight Not available 03/07/2022 14:50:16 She is here as a new patient for annual exam. She has not had a assembly member since 2019, her PCP was doing her paps. She has type 2 diabetes. She notes that since she had her section 25 years ago she had had irregular menses, every 3 to 4 months. She [facility] she went for IVF, however she never conceived and no etiology was found. At that time she had a sonogram, 10 years ago, that showed scar tissue. She has had deep dyspareunia for a year, is not sure of the etiology, I feel bloated, afterward, and cramping pain. On exam her uterus appears ot be normal size, and mobile, and not tender to pressure. Check pelvic sonogram to assess possible endometrial polyp or other etiology of pelvic pain with dyspareunia. She appears to be doing well. They do not use control as she feels she has infertility, she is advised that this is not guaranteed, and that if she does not want fertility she should consider using control. She understands. Monthly self breast exam was taught, and stressed, and is advised to call if she discovers any new mass in the breast. Not available 03/07/2022 14:59:24 05/03/2022 [id number] abnormal uterine bleeding: care instructions Not available 05/03/2022 11:07:46 endometrial biopsy: [facility] Not available 05/03/2022 11:07:46 She is here for emb after sonogram shows a 1.1 cm endometrium with multiple small cystic areas. the sono was done because she has cramping midline pain and pressure after intercourse for years. She tolerated emb moderately well, it was crampy for a few minutes afterward. Await results. Not available 05/03/2022 11:08:53 05/18/2022 [id number] This visit is a phone telehealth visit. The patient consented to the visit by phone. The patient was at home at the time of the call and the provider and patient were the only people on the line. I was at [address] [facility], [address], [place], [place], at the time of the call. She had a pelvic sonogram ordered due to a complaint of cramping pain after intercourse, and intermittent midline pelvic cramping pain on and off for more than a year. The sonogram showed a heterogeneous, 1.1 cm endometrial thickness, with small cystic spaces. EMB removed a portion of a hyperplastic endometrial polyp without atypia. Today we are discussing future management. ____ New patient visit 03/07/22: Pt c/o abd pain and pressure off and on for a while. Pt states she also has abd pain after intercourse. Pt has also had issues with very irregular periods since having her son 25 years ago. Sometimes will skip months. Pt tried to have it treated but felt like she just kept getting pushed aside. ____ The deep dyspareunia nad the intermittent midline pelvic cramping are likely due to the presence of the polyp. the nature of endometrial hyperplasia was discussed with the patient. As she is symptomatic from this polyp, ad we need to ensure that the entire polyp was removed as the histology has hyperplasia, she would like to proceed to hysteroscopy with D and C. The procedure was discussed in detail, pre-op, post-op, intra-op management discussed, all questions answered. She has well controlled type 2 diabetes, and well controlled HTN. She has irregular cycles since the of her child. She did not have excessive blood loss at delivery, and her thyroid testing has been fine. She believes she has infertility and they use no control. Will refer for possible surgery. The patient was agreeable to this plan. She is aware of the limitations caused by the covid restrictions, and this phone call, but was appreciative of the efforts to complete the evaluation. Face to face discussion 30 minutes chevy Not available 05/18/2022 08:53:48 03/08/2023 [id number] learning about healthy weight chevy Not available 03/08/2023 13:25:05 She is here for annual exam, doing much better. she had a D and C last year that removed portion of a large endometrial polyp, EMB removed a portion of a hyperplastic endometrial polyp without atypia. After the surgery she notes that her pelvic pain, cramping and dyspareunia is 80% improved. Menses are every 3 months, having moderate vasomotor symptoms, does not feel she needs intervention. Note from 05/11: She is here for emb after sonogram shows a 1.1 cm endometrium with multiple small cystic areas. the sono was done because she has cramping midline pain and pressure after intercourse for years. She tolerated emb moderately well, it was crampy for a few minutes afterward. Note from 02/2022: She is here as a new patient for annual exam. She has not had a assembly member since 2019, her PCP was doing her paps. She has type 2 diabetes. She notes that since she had her section 25 years ago she had had irregular menses, every 3 to 4 months. She had a [facility] she went for IVF, however she never conceived and no etiology was found. At that time she had a sonogram, 10 years ago, that showed scar tissue. She has had deep dyspareunia for a year, is not sure of the etiology, I feel bloated, afterward, and cramping pain. On exam her uterus appears ot be normal size, and mobile, and not tender to pressure. Check pelvic sonogram to assess possible endometrial polyp or other etiology of pelvic pain with dyspareunia. She appears to be doing well. Monthly self breast exam was taught, and stressed, and is advised to call if she discovers any new mass in the breast. The issues of perimenopause were discussed at length. She is aware that her menses will become erratic, and she may miss menses more frequently. We discussed the possible symptoms of hot flashes, night sweats, insomnia, iritability, short term memory issues, and the possibility of developing anxiety or panic attacks. We reviewed why this occurs, on a physiologic basis, as her estrogen levels diminish. We discussed ways to diminish the symptoms, including avoidance of caffeine and alcohol, cooler temperature rooms, and wearing open and loose weave absorbant clothing, or nothing at all, at night. We touched on the social and life issues that can arise at this time due to the hormonal instability. We discussed ways to manage the symptoms with herbal therapy. The use of black cohash, specifically Remifemin, is discussed, and she is advised that she must take it twice a day for a month prior to trying to asses whether there is any benefit, as it takes a month to begin to notice improvement. She is advised to read The Change Before The Change , by Dr. Herring. All questions answered. chevy Not available 03/08/2023 13:25:47 04/03/2024 [id number] learning about healthy weight chevy Not available 04/03/2024 10:08:20 heavy menstrual periods: care instructions chevy Not available 04/03/2024 10:09:10 She is here for annual, she is having sever hot flashes and night sweats, mood instability, and is sexually active without control, desires something. She had no menses for 8 months, then had a heavy menses in November, since then menses are mostly every month ,but LMP was 02/20/24 she she is overdue. Note from 2022: She is here for annual exam, doing much better. she had a D and C last year that removed portion of a large endometrial polyp, EMB removed a portion of a hyperplastic endometrial polyp without atypia. After the surgery she notes that her pelvic pain, cramping and dyspareunia is 80% improved. Menses are every 3 months, having moderate vasomotor symptoms, does not feel she needs intervention. Check labs for menorrhagia. We discussed all options for control and she desires the OCP, is a never smoker, no family history of stroke. Will use Lo Loestrin as it has an extended duration of action and also lowest dose as she is age 48, and also wants to help manage her perimenopause symptoms. We discussed the Sunday start process for the OCP, that the pill will not be effective for the first month of use, and the interaction with antibiotics. We discussed the need to use a condom during antibiotic use and also for a minimum of three weeks following the use of antibiotics. We discused interactions with some herbal and OTC meds, such as Saint Pa's Wort. Possible side effects, and the stated risk of one in 10,000 to develop a blood clot/ DVT/PE were also discussed. All questions answered, rx to be called in to pharmacy. She is given a free sample pack to start. She appears to be doing well. Monthly self breast exam was taught, and stressed, and is advised to call if she discovers any new mass in the breast. Not available 04/03/2024 10:41:56 Reason for Referral Gynecologic Surgery Referral for Polyp of corpus uteri portion of hyperplastic endometrial polyp, without atypia, removed in office, may be remaining polyp in situ, for possible D and C with hysteroscopy Referring Physician: Comfort Machuca, Gynecology, Encounter Date: 05/18/2022 Results Created Date Observation Date Name Description Value Unit Range Abnormal Flag Note LastModifiedBy Organization Detail LastModifiedTime 03/07/2003/07/2022 [facility] results Patie nt Name: FINA CROFT nt : 1975 (Age: 46) Lab Acces myrna #: [id number] Colle ction Date: 03/07 Acces myrna Date: 03/08 Sign Out Date: 03/13 Tissu e Sourc e: 1: THINP REP [employer] PAP TEST, CERVI IGOR: Final Diagn osis: NEGAT SAYDA FOR INTRA EPITH ELIAL LESIO N OR MALIG MAGAN . Satis facto ry for evalu ation . Endoc ervic al/tr ansfo rmati on zone ABSEN T. Clini igor Histo ry: Date of Last Menst rual Perio d: Menst rual Histo ry: not avail able Contr acept sayda Histo ry: not avail able Ancil isha Testi ng: HPV (ASCU S) Case image d by the ThinP rep Imagi ng Syste m with jose madsen or iqra duarte. Perfo rmed at [facility] ate Refer ence Labor atory depar tment of Cytol ogy, [address] [place] Clini igor Histo ry (othe r): danny flores Phone #: [phone], On-Ca ll Patho logis t: [id number] Not Available [facility] (Centralized Electronic Ordering - All Locations) Patient Can Go To The Location Of Their Choice, [id number] 03/13/2022 09:07:33 03/07/20 22 03/07/2022 fecal occul t blood , stool Occult Blood negati ve Not Available In-Office Order Internal Use Only DO Not Attach Compendium DO Not Attach Compendium, Do Not Delete/merge, [id number] 03/07/2022 14:00:26 05/03/20 22 05/03/2022 [facility] SURGI IGOR PATHO LOGY results Jason nt Name: FINA CROFT Lab Acces myrna #: [id number] Jason nt : 1975 (Age: 46) Colle ction Date: 05/03 Acces myrna Date: 05/03 Sign Out Date: 05/08 Tissu e Sourc e: 1:END OMETR IAL BIOPS Y Final Diagn osis: Endom etriu m, biops y: - Endom etria l polyp , hyper plast ic type, witho ut atypi a. - Scant backg round strip s of super ficia l endom etriu m, sugge stive of atrop hic endom etriu m. Prima ry Patho logis t:Rosi Gordon M.D. elect devyn cardozo carlos d out by: Rosi Gordon M.D. / PARK Clini igor Histo ry: Ultra sound thick ened endom etriu m Gross Descr iptio n: Label ed EMB . Recei alex in forma kris and filte red is a 2.3 x 1.7 x 0.[address] of red, madrigal tissu e with some trans lucen t mucus . The speci men is entir bettye submi tted. 1-mul tiple piece s, x2. (HG)* Phone #: [phone], On-Ca ll Patho logis t: [id number] Not Available [facility] (Centralized Electronic Ordering - All Locations) Patient Can Go To The Location Of Their Choice, [id number] 05/08/2022 10:37:15 03/08/20 23 03/08/2023 [facility] CYTOL [facility] results Jason nt Name: FINA CROFT nt : 1975 (Age: 47) Lab Acces myrna #: [id number] Colle ction Date: 03/08 Acces myrna Date: 03/08 Sign Out Date: 03/14 Tissu e Sourc e: 1: THINP REP [employer] PAP TEST, CERVI IGOR: Final Diagn osis: NEGAT SAYDA FOR INTRA EPITH ELIAL LESIO N OR MALIG MAGAN . Satis facto ry for evalu ation . Endoc ervic al/tr ansfo rmati on zone ABSEN T. Clini igor Histo ry: Date of Last Menst rual Perio d: not avail able Menst rual Histo ry: not avail able Contr acept sayda Histo ry: not avail able Ancil isha Testi ng: HPV (ASCU S) Case image d by the ThinP rep Imagi ng Syste m with jose madsen or iqra summers Perfo rmed at [facility] ate Refer ence Labor atory depar tment of Cytol ogy, [address] [place] Clini igor Histo ry (othe r): Z01.4 19, routi ne scree n, LPS 03/07 neg Phone #: [phone], On-Ca ll Patho logis t: [id number] Not Available [facility] (Centralized Electronic Ordering - All Locations) Patient Can Go To The Location Of Their Choice, [id number] 03/14/2023 11:21:07 03/08/20 23 03/08/2023 fecal occul t blood , stool Occult Blood negati ve Not Available In-Office Order Internal Use Only DO Not Attach Compendium DO Not Attach Compendium, Do Not Delete/merge, [id number] 03/08/2023 12:56:03 04/03/20 24 04/08/2024 IGP, RFX APTIM A HPV ASCU diagnosis: Commen t NEGAT SAYDA FOR INTRA EPITH ELIAL LESIO N OR MALIG MAGAN . Not Available [facility] ([facility][1] Lab) [address] [facility], [place], [address], 04/08/2024 18:06:00 04/03/20 24 04/08/2024 IGP, RFX APTIM A HPV ASCU specimen adequacy: Bert hirsch Satis facto ry for evalu ation . Not Available [facility] ([facility][1] Lab) [address] [place], [address], 04/08/2024 18:06:00 04/03/20 24 04/08/2024 IGP, RFX APTIM A HPV ASCU clinician provided ICD10: Bert hirsch Z01.4 19 N92.0 Not Available [facility] ([facility]) [address] [place], [address], 04/08/2024 18:06:00 04/03/2004/08/2024 IGP, RFX APTIM A HPV ASCU performed by: Sharad Dallas (ASCP ) Not Available [facility] ([facility]) [address] [place], [address], 04/08/2024 18:06:00 04/03/20 24 04/08/2024 IGP, RFX APTIM A HPV ASCU . . Not Available [facility] ([facility]) [address] [place], [address], 04/08/2024 18:06:00 04/03/20 24 04/08/2024 IGP, RFX APTIM A HPV ASCU note: Bert hirsch The Pap smear is a scree noni test desslick floresd to aid in the detec tion of elizabeth ligna nt and malig nant condi tions of the uteri ne cervi x. It is not a diagn ostic proce dure and shoul d not be used as the sole means of detec ting cervi igor cance r. Both false -posi tive and false -nega tive repor ts do occur . Not Available [facility] ([facility]) [address] [facility], [place], [address], 04/08/2024 18:06:00 04/03/20 24 04/08/2024 IGP, RFX APTIM A HPV ASCU test methodology: Commen t This liqui d based ThinP rep(R ) pap test was scree maggie with the use of an image guide diana hinds. Not Available [facility] ([facility]) [address] [facility], [place], [address], 04/08/2024 18:06:00 04/03/20 24 04/08/2024 IGP, RFX APTIM A HPV ASCU . Commen t The HPV DNA refle x crite michael were not met with this speci men resul t there fore, no HPV testi ng was perfo rmed. Not Available [facility] ([facility]) [address] [facility], [place], [address], 04/08/2024 18:06:00 04/03/20 24 04/03/2024 hemog lobin , gastr ointe luis l, stool Occult Blood negati ve Not Available In-Office Order Internal Use Only DO Not Attach Compendium DO Not Attach Compendium, Do Not Delete/merge, [id number] 04/03/2024 09:43:24 03/15/20 22 03/09/2022 US, pelvi s, trans abdom inal + trans vagin al No observ ation record ed. [email or web address] [facility] [address] [place], [address], 04/27/2022 11:50:11 Result Notes None recorded. Problems Name Problem SNOMED Code Status Onset Date Resolution Date Notes Provider Name and Address Organization Details Recorded Time Diabetes mellitus 40529536 Active 2021 type 2 Leola collins [place] - [facility], 2 14:13:00 Hypertensive disorder 05402066 Active 2021 Leola collins [place] - [facility], 2 14:13:06 Dyspareunia 53581338 Active 2021 Comfort Machuca MD [address] [facility], [place], [address] [place] - [facility], 2 14:58:24 Irregular periods 49081104 Active 2021 Comfort Machuca MD [address], [place], [address], [place] - [facility], 2 14:58:32 Problem Notes None recorded. Procedures Surgical History Date Name Laterality Status Provider Name and Address Organization Details Recorded Time 4 Most Recent Mammogram completed Leydi Cuello [place] - [facility], 04/03/2024 09:42:25 3 excision of uterine polyp completed Leydi [place] in [facility], 03/08/2023 13:04:33 2 Endometrial Biopsy completed Comfort Machuca MD [address] [facility],[address], [place], [address], [place] - [facility], 05/03/2022 11:08:20 7 delivery completed Leola Griffith [place] - [facility], 03/07/2022 14:16:15 Imaging Results Imaging Date Name Status LastModified by Organization Details LastModified Time 03/09/2022 US, pelvis, transabdominal + [facility] [address] [place], [address], 04/27/2022 11:50:11 Procedure Notes None recorded. Medical Equipment None Reported. Allergies No known drug allergies Medications Name Sig Start Date Stop Date Status Note LastModified by Organization Details LastModified Time freestyle mis lancets active Not Available Not Available Not Available freestyle lancets misc active Not Available Not Available Not Available atorvastati n 20 mg tablet TAKE 1 TABLET BY MOUTH EVERY DAY active Not Available Not Available No t Available pravastatin 40 mg tablet TAKE 1 TABLET BY MOUTH AT BEDTIME active Not Available Not Available No t Available FreeStyle Lancets 28 gauge USE TO CHECK BLOOD SUGAR TWICE DAILY active Not Available Not Available No t Available ciprofloxac in 500 mg tablet TAKE 1 TABLET BY MOUTH EVERY 12 HOURS 03/08 completed Not Available Not Available Not Available terbinafine HCl 250 mg tablet TAKE 1 TABLET BY MOUTH DAILY 03/08 completed Not Available Not Available Not Available ibuprofen 600 mg tablet TAKE 1 TABLET BY MOUTH THREE TIMES DAILY active Not Available Not Available No t Available losartan 50 mg-hydrochl orothiazide 12.5 mg tablet TAKE 1 TABLET BY MOUTH DAILY active Not Available Not Available No t Available fluticasone propionate 50 mcg/actuati on nasal spray,suspe nsion INSTILL 1 SPRAY INTO EACH NSTRIL DAILY active Not Available Not Available No t Available losartan 100 mg-hydrochl orothiazide 12.5 mg tablet TAKE 1 TABLET BY MOUTH DAILY active Not Available Not Available No t Available Vitamin C active Not Available Not Susan ilable Not Available mometasone 0.1 % topical solution APPLY TOPICALLY TO THE AFFECTED AREA TWICE DAILY FOR RASH active Not Available Not Available No t Available Janumet 50 mg-1,000 mg tablet TAKE 1 TABLET BY MOUTH TWICE DAILY active Not Available Not Available No t Available FreeStyle Lite Strips USE TO CHECK BLOOD SUGAR TWICE DAILY DIRECTED active Not Available Not Available No t Available Lo Loestrin Fe 1 mg-10 mcg (24)/10 mcg (2) tablet Take 1 tablet every day by oral route for 84 days. active Not Available Not Available No t Available Multi For Her active Not Available Not Available Not Available Jardiance 10 mg tablet TAKE 1 TABLET BY MOUTH EVERY DAY IN THE MORNING active Not Available Not Available No t Available Jardiance 25 mg tablet TAKE 1 TABLET BY MOUTH DAILY IN THE MORNING active Not Available Not Available No t Available BinaxNOW COVID-19 Ag Self Test kit TEST DIRECTED TODAY active Not Available Not Available No t Available Paxlovid 300 mg (150 mg x 2)-100 mg tablets in a dose pack TK 2 NIRMATREL VIR TS AND 1 RITONAVIR T TOGETHER PO BID FOR 5 DAYS active Not Available Not Available No t Available Vitals Date Recorded Body weight Body mass index (BMI) Body height Heart rate Systolic blood pressure Diastolic blood pressure Provider Name and Address Organization Details Last Updated DateTime 2 201522. 98 g 45 kg/m2 154.94 cm 78 /min 135 mm[Hg] 79 mm[Hg] Leola Griffith [place] - [facility], 2 14:11:12 Date Recorded Body height Body mass index (BMI) Body weight Heart rate Systolic blood pressure Diastolic blood pressure Provider Name and Address Organization Details Last Updated DateTime 2 154.94 cm 44.2 kg/m2 373499. 61 g 72 /min 142 mm[Hg] 81 mm[Hg] Leola Hill in [facility], 2 10:42:51 Date Recorded Body height Body mass index (BMI) Body weight Heart rate Systolic blood pressure Diastolic blood pressure Provider Name and Address Organization Details Last Updated DateTime 3 154.94 cm 45.5 kg/m2 278559. 76 g 80 /min 128 mm[Hg] 89 mm[Hg] Leydi Hill in [facility], 3 12:57:50 Date Recorded Body weight Body mass index (BMI) Body height Body temperature Heart rate Systolic blood pressure Diastolic blood pressure Provider Name and Address Organization Details Last Updated DateTime 4 660310. 59 g 42 kg/m2 156.21 cm 97.5 [degF] 88 /min 123 mm[Hg] 83 mm[Hg] Leydi Hill in [facility], 4 09:37:25 Social History Question Answer Notes LastModified by Organizat ion Details LastModified Time Tobacco Smoking Status Never Smoker [place]S [place] in [facility], 03/07/2022 14:15:10 What Is Your Level Of Alcohol Consumption? Occasional Information not available 03/07/2022 How Many Years Have You Consumed Alcohol? 25 Information not available 03/08/2023 What Is Your Level Of Caffeine Consumption? Occasional Information not available 03/07/2022 In The 14 Days Before Symptom Onset, Have You Had Close Contact With A Laboratory-confir med COVID-19 While That Case Was Ill? No Information not available 03/07/2022 In The 14 Days Before Symptom Onset, Have You Had Close Contact With A Person Who Is Under Investigation For COVID-19 While That Person Was Ill? No Information not available 03/07/2022 Have You Been To An Area Known To Be High Risk For COVID-19? No Information not available 03/07/2022 Are You Currently Employed? Yes Information not available 03/07/2022 What Is The Highest Grade Or Level Of School You Have Completed Or The Highest Degree You Have Received? [id number] Information not available 03/07/2022 Who Is Your Employer? [employer] Information not available 03/07/2022 What Is Your Occupation? [employer] Information not available 03/07/2022 Are There Any Guns Present In Your Home? No Information not available 03/07/2022 To Which Gender Do You Self-identify? Female Information not available 03/07/2022 What Was The Date Of Your Most Recent Tobacco Screening? 04/03/2024 Information not available 04/03/2024 What Is Your Relationship Status? Information not available 03/07/2022 Are You Sexually Active? Yes Information not available 03/07/2022 Do You Feel Stressed (tense, Restless, Nervous, Or Anxious, Or Unable To Sleep At Night)? [id number] Information not available 03/07/2022 Do You Use Any Illicit Or Recreational Drugs? No Information not available 03/07/2022 Do You Or Have You Ever Used Any Other Forms Of Tobacco Or Nicotine? No Information not available 03/07/2022 How Many Days In The Past Year Have You Consumed 4 Or More Drinks? 0 Information no t available 04/03/2024 Sex: Female Functional Status Question Answer Note LastModified by Organization D etails LastModified Time What is your exercise level? Moderate Information not available 03/07/2022 Mental Status None recorded. Family History Relationship Description Onset Age of this Age Resolved Age Notes LastModified by Organization Details LastModified Time Father No current problems or disability Not available 03/07 14:13:15 Mother No current problems or disability Not available 03/07 14:13:15 Medical History Condition Response Anesthesia complications N High Blood Pressure N Candidate for MyRisk panel N Autoimmune Condition N Thyroid Problems N Kidney or Bladder Problems N GI Problems N Lung Disease N Depression N Defects or Inherited Disease N Anemia N History of Ovarian Cancer N History of Breast Cancer N NIR exposure N BRCA testing in past N Osteopenia N Psychiatric Illness N Anxiety Disorder N Diabetes Y Arthritis N Headaches or Migraines N Infertility Y Asthma N History of Cancer N Endometriosis N Hepatitis N Heart Disease N Hypertension Y Osteoporosis N Gynecological History Statement/Question Response Flow Moderate Date of LMP 02/20/2024 Menses Monthly N Duration of Flow (days) Age at Menarche 9 Current Control Method None Most Recent Mammogram 05/22/2023 Age at First Child 21 Obstetrics History GPAL:G 1 P 1 0 0 1 Type Value Full Term 1 Living 1 Total 1 Immunizations Vaccine Type Date Status Note Provider Nam e and Address Organization Details Recorded Time Influenza, split virus, quadrivalent, PF 05/20/2021 completed ROSS Newsome in [facility], 03/07/2022 14:10:28 COVID-19, mRNA, LNP-S, PF, 100 mcg/0.5mL dose or 50 mcg/0.25mL dose 08/30/2020 completed ROSS Newsome in [facility], 03/07/2022 14:10:28 COVID-19, mRNA, LNP-S, PF, 100 mcg/0.5mL dose or 50 mcg/0.25mL dose 05/20/2021 completed ROSS [place] in [facility], 03/07/2022 14:10:28 COVID-19, mRNA, LNP-S, PF, 100 mcg/0.5mL dose or 50 mcg/0.25mL dose 11/15/2020 ROSS [place] in [facility], 03/07/2022 14:10:28 COVID-19, mRNA, LNP-S, PF, 100 mcg/0.5mL dose or 50 mcg/0.25mL dose 06/30/2021 ROSS [place] in [facility], 03/07/2022 14:10:28 COVID-19, mRNA, LNP-S, PF, 100 mcg/0.5mL dose or 50 mcg/0.25mL dose 08/02/2020 completed [place]S [place] in [facility], 03/07/2022 14:10:28 Influenza, split virus, trivalent, PF 04/27/2021 completed ROSS Newsome in [facility], 05/03/2022 10:46:59 Past Encounters Encounter ID Performer Location Encounter Start Date Encounter Closed Date Diagnosis/Indication Diagnosis SNOMED-CT Code Diagnosis ICD10 Code Diagnosis Note [id number] MD COMFORT Vilchis MD [address] [place] [address],[address] [place] [id number] 03/07/2022 13:52:13 03/07/2022 15:36:56 Specialized medical examination 79909348 Z01.419 Screening for malignant neoplasm of rectum 270239069 Z12.12 Screening mammography 24 188968 Z12.31 Pain in pelvis 61359679 R10.2 Dyspareunia 59708303 N94 .10 Diabetes mellitus 293948 09 E11.9 Irregular periods 743891 07 N92.6 Hypertensive disorder 38 962502 I10 [id number] MD COMFORT Vilchis MD [address] [place] [address],[address] [place] [id number] 05/03/2022 10:37:52 05/03/2022 11:32:40 Oligoovulatory dysfunctional uterine bleeding 836962156 N93.8 [id number] MD COMFORT Vilchis MD [address] [place] [address], [place] [address] 05/18/2022 08:06:20 05/18/2022 08:59:09 Polyp of corpus uteri 11823598 N84.0 Pain in pelvis 20934139 R10.2 Dyspareunia 13994532 N94 .12 [id number] MD COMFORT Vilchis MD [address] [place] [address],[place] [address] 03/08/2023 12:52:59 03/08/2023 13:36:18 Specialized medical examination 70203956 Z01.419 Screening for malignant neoplasm of rectum 535989227 Z12.12 Screening mammography 24 411838 Z12.31 [id number] MD COMFORT Vilchis MD [address] [facility],[address] [place] [id number] 04/03/2024 09:10:22 04/03/2024 10:44:39 Specialized medical examination 39554041 Z01.419 Screening for malignant neoplasm of rectum 175585888 Z12.12 Screening mammography 24 987118 Z12.31 Menorrhagia 940160933 N9 2.0 Health Concerns Section Related Observation LastModified by Organization Detai ls LastModified Time None Recorded Concern Status LastModified by Organization Details LastModified Time None Recorded Advance Directives Directive None Recorded Payers Encounter Date Sequence Insurance Name Policy Number Policy Polk Covered Member ID Polk Member ID Guarantor Name 03/07/2022 1 [facility]) [id number] Fina Mckinnon [id number] Fina Mckinnon 05/03/2022 1 [facility] [id number] Fina Mckinnon [id number] Fina Mckinnon 05/18/2022 1 [facility]) [id number] Fina Mckinnno [id number] Fina Mckinnon 03/08/2023 1 [facility] [id number] Fina Mckinnon [id number] Fina Mckinnon 04/03/2024 1 [facility] [id number] Fina Mckinnon [id number] Fina Mckinnon Notes Date Note Type Note Provider Name and Address Organization Details Recorded Time 03/07/2022 text/html She is here as a new patient for annual exam. She has not had a assembly member since 2019, her PCP was doing her paps. She notes that since she had her section 25 years ago she had had irregular menses, every 3 to 4 months. She had [facility] for IVF, however she never conceived and no etiology was found. At that time she had a sonogram, 10 years ago, that showed scar tissue. She has had deep dyspareunia for a year, is not sure of the etiology, I feel bloated, afterward, and cramping pain. Comfort Machuca MD [address] [facility],[address], [place], [address], [place] - [facility], 03/07/2022 15:00:03 05/03/2022 text/html She is here for emb after sonogram shows a 1.1 cm endometrium with multiple small cystic areas. the sono was done because she has cramping midline pain and pressure after intercourse for years. Comfort Machuca MD [address] [facility],[address], [place], [address], [facility] - [facility] in [facility], 05/03/2022 11:21:15 05/18/2022 text/html This visit is a phone telehealth visit. The patient consented to the visit by phone. The patient was at home at the time of the call and the provider and patient were the only people on the line. I was at [address] [place] [address], [address], [place], [place], at the time of the call. She had a pelvic sonogram ordered due to a complaint of cramping pain after intercourse, and intermittent midline pelvic cramping pain on and off for more than a year. The sonogram showed a heterogeneous, 1.1 cm endometrial thickness, with small cystic spaces. EMB removed a portion of a hyperplastic endometrial polyp without atypia. Today we are discussing future management. ____ New patient visit 03/07/22: Pt c/o abd pain and pressure off and on for a while. Pt states she also has abd pain after intercourse. Pt has also had issues with very irregular periods since having her son 25 years ago. Sometimes will skip months. Pt tried to have it treated but felt like she just kept getting pushed aside. Comfort Machuca MD [address] [facility],[address], [place], [address], [facility], 05/18/2022 08:54:10 03/08/2023 text/html She is here for annual exam, doing much better. she had a D and C last year that removed portion of a large endometrial polyp,EMB removed a portion of a hyperplastic endometrial polyp without atypia. After the surgery she notes that her pelvic pain, cramping and dyspareunia is 80% improved. Menses are every 3 months, having moderate vasomotor symptoms, does not feel she needs intervention. Note from 05/11: She is here for emb after sonogram shows a 1.1 cm endometrium with multiple small cystic areas. the sono was done because she has cramping midline pain and pressure after intercourse for years.She tolerated emb moderately well, it was crampy for a few minutes afterward. Note from 02/2022: She is here as a new patient for annual exam. She has not had a assembly member since 2018, her PCP was doing her paps.She has type 2 diabetes.She notes that since she had her section 25 years ago she had had irregular menses, every 3 to 4 months. She [facility] went for IVF, however she never conceived and no etiology was found.At that time she had a sonogram, 10 years ago, that showed scar tissue. She has had deep dyspareunia for a year, is not sure of the etiology, I feel bloated, afterward, and cramping pain. On exam her uterus appears ot be normal size, and mobile, and not tender to pressure.Check pelvic sonogram to assess possible endometrial polyp or other etiology of pelvic pain with dyspareunia. Comfort Machuca MD [address] [facility],[address], [place], [address], [place] - [facility], 03/08/2023 13:26:04 04/03/2024 text/html She is here for annual, she is having sever hot flashes and night sweats, mood instability, and is sexually active without control, desires something. She had no menses for 8 months, then had a heavy menses in November, since then menses are mostly every month ,but LMP was 02/20/24 she she is overdue. Note from 2022: She is here for annual exam, doing much better. she had a D and C last year that removed portion of a large endometrial polyp,EMB removed a portion of a hyperplastic endometrial polyp without atypia.After the surgery she notes that her pelvic pain, cramping and dyspareunia is 80% improved.Menses are every 3 months, having moderate vasomotor symptoms, does not feel she needs intervention. Comfort Machuca MD [address] [facility],[address], [place], [address], [place] - [facility], 04/03/2024 10:42:21 OBGyn Episode No OBEpisode recorded.
--- OUTSIDE RECORDS SUMMARY | 2024-08-21 07:53 | XMS_ITS | Clinical Summary ---
Author Organization [facility] Address [address] [facility] [address] [place] [phone] Phone Care Team Providers Care Contract Runner Name Role Phone Nila Lebron MD Primary Care Provider Allergies No known active allergies Medications Medication Sig Dispensed Refills Start Date End Date Status atorvastatin (LIPITOR) 20 MG tablet Take 1 tablet by mouth daily. 09/01/2022 Active JARDIANCE 10 mg tablet Take 1 tablet by mouth every morning. Active fluticasone propionate (FLONASE) 50 mcg/actuation nasal spray INSTILL 1 SPRAY INTO EACH NSTRIL DAILY Active losartan-hydroCHLOROth iazide (HYZAAR) 50-12.5 mg per tablet Take 1 tablet by mouth daily. Active JANUMET 50-1,000 mg per tablet Take 1 tablet by mouth 2 (two) times a day. Active Social History Tobacco Use Types Packs/Day Years Used Date Smoking Tobacco: Never Smokeless Tobacco: Never Tobacco Cessation:Counseling Given: Not Answered Alcohol Use Standard Drinks/Week Comments Yes 0 (1 standard drink = 0.6 oz pur e alcohol) Education Answer Date Recorded Are you interested in more education? Not on anju e 10/22/2023 Are you concerned about learning? Not on file 10/22/2023 No 10/22/2023 No 10/22/2023 Digital Access Answer Date Recorded No 10/22/2023 No 10/22/2023 Reliable internet access at home? Not on file 10/22/2023 Device with a working camera? Not on file Sex and Gender Information Value Date Recorded Sex Assigned at Female 11/08/2023 6:01 AM EDT Gender Identity Female 11/08/2023 6:01 AM EDT Sexual Orientation Straight 11/08/2023 6: 01 AM EDT Last Filed Vital Signs Vital Sign Reading Time Taken Comments Blood Pressure - - Pulse - - Temperature - - Respiratory Rate - - Oxygen Saturation - - Inhaled Oxygen Concentration - - Weight 106.6 kg (235 lb) 11/08/2023 9:04 AM EDT Height 154.9 cm (5' 1 ) 11/08/2023 9:04 AM EDT Body Mass Index 44.4 11/08/2023 9:04 AM EDT Plan of Treatment Health Maintenance Due Date Last Done Comments Adult Td,Tdap Booster 1974 CREATININE LEVEL 1974 LIPID PANEL 1974 POTASSIUM LEVEL 1974 DEPRESSION SCREENING 1986 HEPATITIS C SCREENING 1992 HIV ONE-TIME SCREENING (18-65 YEARS) 1992 PAP SMEAR 08/07/1995 SCREENING FOR DIABETES 2009 MAMMOGRAM 2014 COLOGUARD 08/07/2019 COLONOSCOPY 08/07/2019 COLORECTAL CANCER SCREENING 08/07/2019 FIT TEST 08/07/2019 FOBT 08/07/2019 SIGMOIDOSCOPY 08/07/2019 VIRTUAL COLONOSCOPY 08/07/2019 INFLUENZA VACCINE (#1) 2023 05/20/2021, 2020 COVID-19 VACCINE ( season) 2024 06/30/2021, 05/20/2021, 11/15/2020, Additional history exists PNEUMOCOCCAL VACCINES (50+ years) (1 of 1 - PCV) 2024 ZOSTER VACCINES (1 of 2) 2024 SMOKING STATUS SCREENING (Once After 26 Yrs) Completed 12/06/2023 HEPATITIS A VACCINES Aged Out No long er eligible based on patient's age to complete this topic HIB VACCINES Aged Out No longer eligi ble based on patient's age to complete this topic MENINGOCOCCAL VACCINES (ACWY) Aged Out No longer eligible based on patient's age to complete this topic Medical Devices Not on file Insurance Payer Benefit Plan / Group Subscriber ID Effective Dates Phone Address [facility] [id number] 2021-Present [address] [address] O Care Teams Contract Runner Relationship Specialty Start Date End Date Nila Lebron MD [address] [place] [address] [place] [address] PCP - General Internal Medicine 10/19/23 Additional Source Comments The information contained in this document represents components of the legal health record. It is not the complete legal health record.[facility]
--- OUTSIDE RECORDS SUMMARY | 2024-08-21 07:53 | XMS_ITS | Clinical Summary ---
Author Organization [facility] lin Address [address] [place] [address] Care Team Providers Care Route Sales Delivery Drivers Supervisor Name Role Phone Pcp, No Primary Care Provider Social History Tobacco Use Types Packs/Day Years Used Date Smoking Tobacco: Never Assessed Comments Unknown Sex and Gender Information Value Date Recorded Sex Assigned at Not on file Legal Sex Female 1:05 PM EDT Gender Identity Not on file Sexual Orientation Not on file Plan of Treatment Health Maintenance Due Date Last Done Comments Colorectal Cancer: COLONOSCO PY Screening every 10 yrs (or Modifier) 1974 Depression: Screening Annual ly using PHQ-2/9 in Adults 18 yrs or above (or HM Modifier)([facility]) 1974 Hepatitis C Virus Infection in Adolescents and Adults: Screening (or Modifier) ([facility]) 1992 [facility] Screening Reminder: Maria Isabel abernathy for all adults ([facility]) 1992 Tobacco Smoking Cessation: i n Adults excluding Women: Behavioral and Pharmacotherapy Interventions ([facility]) 1992 DTaP/Tdap/Td Vaccines ([facility]) (1 - Tdap) 1993 Cervical Cancer Screenin 1-65 yrs of age (or Modifier) 08/07/1995 Cervical Cancer Screening: P ap every 3 yrs pts age 21-65 08/07/1995 Cervical Cancer: Pap Screeni ng with Modifier timing ([facility]) 08/07/1995 Cervical Cancer: hrHPV alone or with cotesting Pap for Pts 30-65yrs screening every 5yrs ([facility]) 08/07/1995 Colorectal Cancer Screening 45 -75 Yrs (or HM Modifier ) 08/07/2019 Colorectal Cancer: FLEXIBLE SIGMOIDOSCOPY Screening every 5 yrs 08/07/2019 Colorectal Cancer: Fecal Imm unochemical Test (FIT) Annually [facility] 08/07/2019 Colorectal Cancer: High-sens itivity gFOBT Screening Annually [facility] 08/07/2019 Colorectal Cancer: Stool Col oguard Screening every 3 yrs 08/07/2019 Colorectal Cancer:CT Colonography Screening every 5 yr s 08/07/2019 Lipid Screening: Every 5 yrs for Women aged 45+ (or HM Modifier) ([facility]) 2020 Flu Vaccination: Yearly for ages 18mos through 64 years (or Modifier)([facility]) 12/20/2023 COVID-19 Vaccine Screening: Initial Series and Booster Status ([facility]) ( - 2023- season) 2024 Breast Cancer: Screening Maria Isabel ually age 50-74 yrs (or HM Modifier)([facility]) 2024 Pneumococcal Vaccination Scr eening: Patients 50+ yrs of age ([facility]) (1 of 1 - PCV) 2024 Zoster/Shingles Vaccine Seri es Screening: Adults aged 18+ yrs (or HM Modifiers)([facility]) (1 of 2) 2024 Medical Devices Not on file [place] [place] [address] Care Teams Route Sales Delivery Drivers Supervisor Relationship Specialty Start Date End Date Pcp, No PCP - General Family Medicine 03/21/21
[2024-08-21 08:39] LABS: Estimated Average Glucose 154 mg/dL; Hemoglobin A1C 206.8667 umol/L
[2024-08-21 09:02] LABS: Alanine Aminotransferase 16 U/L (0-31); Albumin Level 4.2 g/dL (3.5-5.0); Alkaline Phosphatase 86 U/L (39-117); Anion Gap 11 (12-20); Aspartate Amino Transferase 20 U/L (5-31); Bilirubin Total 0.5 mg/dL (0.0-1.0); Blood Urea Nitrogen 14 mg/dL (9-16); Calcium 9.2 mg/dL (8.4-10.2); Carbon Dioxide 28 mmol/L (22-29); Chloride 104 mmol/L (96-108); Estimated Glomerular Filt Rate > 60; Glucose Random 103 mg/dL (60-115); Potassium 4.4 mmol/L (3.3-5.1); Sodium 139 mmol/L (135-145); Total Protein 7.6 g/dL (6.5-8.0)
== END 2024-08-21 07:50 | disposition home or self-care (01) ==
LOC: HO.LAB 07:49
PROVIDERS: PCP Internal Medicine; Visit Provider Internal Medicine
DX: E11.9 Type 2 diabetes mellitus without complications (principal); E78.00 Pure hypercholesterolemia, unspecified; I10 Essential (primary) hypertension; Z68.42 Body mass index [BMI] 45.0-49.9, adult
CPT/HCPCS: 36415; 80053; 83036

== ENCOUNTER 2024-12-02 08:10 | Outpatient (REF) | payer OTHER, SELFPAY ==
--- OUTSIDE RECORDS SUMMARY | 2024-12-02 08:15 | XMS_ITS | Clinical Summary ---
Author Organization [facility] [place] [facility] Address [address] [place] [id number] Phone Care Team Providers Care Mechanical Engineering Draftsperson Name Role Phone Nila Lebron MD Primary Care Provider [phone] Allergies Active Allergy Reactions Criticality Noted Date [...] Medical History Date Comments Hypertension Diabetes mellitus ([facility] V24, [facility] V28) Social History Tobacco Use Types Packs/Day Years [...] 69 05/22/2024 10:53 AM EST Temperature 36.3 C (97.4 F) 05/22/2024 9:42 AM EST Respiratory Rate 16 05/22/2024 10:53 AM EST [...] Influencers of Health Screening 12/11/2023 COVID-19 Vaccine (2023- season) 2024 06/30/2021, 05/20/2021, 11/15/2020, Additional history exists Pneumococcal Vaccine: 50+ Years (1 of 1 - PCV) 2024 Zoster Vaccines (1 of 2) 2024 Influenza Vaccine (#1) 2025 05/20/2021, 2020 Colorectal Cancer Screening: Colonoscopy 05/22/2034 05/22/2024 HIB [...] age to complete this topic Meningococcal B Vaccine Aged Out No l onger eligible based on patient's age to complete [...] Maintenance Results * COLONOSCOPY Anesthesia - MAC; [facility] ENDOSCOPY (05/22/2024 10:30 AM EST) Anatomical Region Laterality Modality Endoscopy 05/22/2024 10:1 6 AM EST Impressions 05/22/2024 10:32 AM EST - Internal hemorrhoids. - The examination was otherwise normal. - No specimens collected. Recommendation: - Discharge patient to home. - Repeat colonoscopy in 10 years for screening purposes. Narrative 05/22/2024 10:32 AM EST [facility] GI Patient Name: Becky Mckinnon [...] the procedure, a History and Physical was performed, and patient medications and allergies were reviewed. The patient is competent. The risks and benefits of the procedure and the sedation options and risks were discussed with the patient. All questions were answered and informed consent was obtained. Patient identification and proposed procedure were verified by the physician, the nurse, the heatset winder operator and the device repair technician in the pre-procedure area in the endoscopy suite. Mental Status Examination: alert and oriented. Airway Examination: normal oropharyngeal airway and neck mobility. Respiratory Examination: clear to auscultation. CV Examination: normal. Prophylactic Antibiotics: The patient does not require prophylactic antibiotics. Prior Anticoagulants: The patient has taken no anticoagulant or antiplatelet agents. ASA Grade Assessment: II - A patient with mild systemic disease. After reviewing the risks and [...] monitored throughout the procedure. The physical status of the patient was re-assessed after the procedure. After I obtained informed consent, the scope was passed under direct vision. Throughout the procedure, the patient's blood pressure, pulse, and oxygen saturations were monitored continuously. The Colonoscope was introduced through the anus and advanced to the cecum, identified by appendiceal orifice and ileocecal valve. The colonoscopy was performed without difficulty. The patient tolerated the procedure well. The quality of the bowel preparation was good. Findings: The perianal and digital rectal examinations were normal. Internal hemorrhoids were found during retroflexion. The hemorrhoids were Grade I (internal hemorrhoids that do not prolapse). The exam was otherwise without abnormality. Procedure Code(s): --- Professional --- G0121, Colorectal cancer screening; colonoscopy on individual not meeting criteria for high risk Diagnosis Code(s): --- Professional --- Z12.11, Encounter for screening for malignant neoplasm of colon CPT copyright 2020 [employer]. All rights reserved. The codes documented in this report are preliminary and upon washer machine review may be revised to meet current compliance requirements. Eli Kirk MD 05/22/2024 10:32:11 AM This report has been signed electronically.Eli Kirk MD Number of Addenda: 0 Note Initiated On: 05/22/2024 10:16 AM Scope Withdrawal Time: 0 hours 6 minutes 26 seconds Scope In: 10:21:05 AM Scope Out: 10:30:38 AM Endoscopy Department at [facility] - [address] [place] [phone] Procedure Note Eli Kirk MD - 05/22/2024 [facility] GI Patient Name: Becky Mckinnon [...] the physician, the nurse, theanesthetist and the device repair technician in the pre-procedure area in the [...] for malignantneoplasm of colon CPT copyright 2020 [employer]. All rights reserved. The codes documented in this report are preliminary and upon washer machine reviewmay be revised to meet current compliance requirements. Eli Kirk MD 05/22/2024 10:32:11 AM This report has been signed electronically.Eli Kirk MD Number of Addenda: 0 Note Initiated On: 05/22/2024 10:16 AM Scope Withdrawal Time: 0 hours 6 minutes 26 seconds Scope In: 10:21:05 AM Scope Out: 10:30:38 AM Endoscopy Department at [facility] - [address] [place] [id number] IMPRESSION: - Internal hemorrhoids. - The examination was otherwise normal. - No specimens collected. Recommendation: - Discharge patient to home. - Repeat colonoscopy in 10 years for screening purposes. us Eli Kirk MD GI~PROCEDURE ORDERABLES Fin al Result from Last 3 Months or Most Recently Relevant to Health Maintenance Insurance [employer] [place] Member Subscriber Plan / Payer (Ef fective 2011-Present) Name:Becky Mckinnon Relation to Subscriber:Self Name:Becky Mckinnon Payer ID:[id number] Type:Not on file Address: [facility] [id number] Care Teams Mechanical Engineering Draftsperson Relationship Specialty Start Date End Date Nila Lebron MD [address] [place] [address] [place] [id number] PCP - General 09/25/23
--- OUTSIDE RECORDS SUMMARY | 2024-12-02 08:15 | XMS_ITS | Data Portability ---
Author Organization [place] - [facility],, COMFORT MACHUCA MD Address [address] [address] Care Team Providers Care Proofer Prepress Name Role Phone VERÓNICA FORD Primary Care Provider [phone] Assessment No assessment recorded. Plan of Treatment [...] To The Location Of Their Choice, 5 08:52:09 iron + TIBC + ferritin, serum 2023 024 [email or web address] [facility] (Centralized Electronic Ordering - All Locations), Patient Can Go To The Location Of Their Choice, 5 08:52:09 TSH + free T4, serum 2023 024 [email or web address] [facility] (Centralized Electronic Ordering - All Locations), Patient Can Go To The Location Of Their Choice, 5 08:52:09 beta-HCG, qualitativ e, serum or plasma 2023 024 [email or web address] [facility] (Centralized Electronic Ordering - All Locations), Patient Can Go To The Location Of Their Choice, 5 08:52:09 hemoglobin , gastrointe stinal, stool 2023 024 [email or web address] 1 In-Office Order, Internal Use Only DO Not Attach Compendium DO Not Attach Compendium, Do Not Delete/merge, [id number] 4 10:08:56 pap test, thinprep, cervical 2022 023 [facility] (Centralized Electronic Ordering - All Locations), Patient Can Go To The Location Of Their Choice, [id number] 3 07:32:44 fecal occult blood, stool 2022 023 [email or web address] 1 In-Office Order, Internal Use Only DO Not Attach Compendium DO Not Attach Compendium, Do Not Delete/merge, [id number] 3 13:25:05 biopsy, endometria l 2021 022 [facility] ([facility] Ordering - All Locations), Patient Can Go To The Location Of Their Choice, [id number] 2 07:32:14 pap test, thinprep, cervical 2021 022 [email or web address] [facility] (Centralized Electronic Ordering - All Locations), Patient Can Go To The Location Of Their Choice, [id number] 2 07:32:05 fecal occult blood, stool 2021 022 [email or web address] In-Office Order, Internal Use Only DO Not Attach Compendium DO Not Attach Compendium, Do Not Delete/merge, [id number] 2 15:36:47 Referral gynecologi c surgery referral - portion of hyperplast ic endometria l polyp, without atypia, removed in office, may be remaining polyp in situ, for possible D and C with hysterosco py 2021 022 [facility], [address] [place] [address], [address], 3 08:02:51 Procedures None recorded. Surgeries None recorded. Imaging MAMMO, screening, digital, bilateral - Breast Aspiration and/or Biopsy if needed 2023 024 sayra [facility] (Mammo), [address] [facility] [place], [address], 4 10:44:39 MAMMO, screening, digital, bilateral - Breast Aspiration and/or Biopsy if needed 2022 023 [facility] (Mammo), [address] [facility] [place], [address], 4 07:41:07 MAMMO, screening, digital, bilateral 2021 022 [facility] (Mammo), 2 [facility] [place], [address], 4 07:40:29 US, pelvis, transabdom inal + transvagin al - deep dyspareuni a for a year 2021 022 [facility] (Imaging), [address] [place] [address] [place], [address], 2 15:39:14 Medication Orders Lo Loestrin Fe 1 mg-10 mcg (24)/10 mcg (2) tablet 2023 024 [id number], [address], [place], [id number], 4 10:09:15 Patient TargetsNo targets recorded. Patient Instructions Encounter Date Encounter Id Patient Instructions Last Modified By Organization Details Last Modified Time 03/07/2022 [id number] learning about healthy weight Not available 03/07/2022 14:50:16 She is here as a new patient for annual exam. She has not had a audit tech since 2019, her PCP was doing her [...] the breast. Not available 03/07/2022 14:59:24 05/03/2022 [id number] abnormal uterine bleeding: care instructions Not available 05/03/2022 11:07:46 endometrial biopsy: [facility] Not available 05/03/2022 11:07:46 She is here for emb after sonogram shows a 1.1 cm endometrium with multiple small cystic areas. the sono was done because she has cramping midline pain and pressure after intercourse for years. She tolerated emb moderately well, it was crampy for a few minutes afterward. Await results. Not available 05/03/2022 11:08:53 05/18/2022 [id number] This visit is a phone telehealth visit. The patient consented to the visit by phone. The patient was at home at the time of the call and the provider and patient were the only people on the line. I was at [address] [facility], [address], [place], [place], at the time of the call. [...] discussing future management. ____ New patient visit 10/18/22: Pt c/o abd pain and pressure off [...] minutes chevy Not available 05/18/2022 08:53:48 03/08/2023 [id number] learning about healthy weight chevy Not available [...] annual exam. She has not had a audit tech since 2019, her PCP was doing her [...] answered. chevy Not available 03/08/2023 13:25:47 04/03/2024 [id number] learning about healthy weight chevy Not available [...] Tissu e Sourc e: 1: THINP REP CLOSING MANAGER PAP TEST, CERVI IGOR: Final Diagn osis: [...] madsen or iqra duarte. Perfo rmed at [facility] ate Refer ence Labor atory depar tment of Cytol ogy, [address] [place] Clini igor Histo ry (othe r): danny flores Phone #: [phone], On-Ca ll Patho logis t: [id number] Not Available [facility] (Centralized Electronic Ordering - All Locations) Patient Can Go To The Location Of Their Choice, [id number] 03/13/2022 09:07:33 10/18/20 22 03/07/2022 fecal occul t blood , stool Occult Blood negati ve Not Available In-Office Order Internal Use Only DO Not Attach Compendium DO Not Attach Compendium, Do Not Delete/merge, [id number] 03/07/2022 14:00:26 05/03/20 22 05/03/2022 [facility] SURGI [...] tiple piece s, x2. (HG)* Phone #: [phone], On-Ca ll Patho logis t: [id number] Not Available [facility] (Centralized Electronic Ordering - All Locations) Patient Can Go To The Location Of Their Choice, [id number] 05/08/2022 10:37:15 03/08/20 23 03/08/2023 [facility] CYTOL OGY results Jason nt Name: FINA CROFT nt : 1975 (Age: 47) Lab Acces myrna #: [id number] Colle ction Date: 03/08 Acces myrna Date: 03/08 Sign Out Date: 03/14 Tissu e Sourc e: 1: THINP REP CLOSING MANAGER PAP TEST, CERVI IGOR: Final Diagn osis: [...] madsen or iqra summers Perfo rmed at [facility] ate Refer ence Labor atory depar tment of Cytol ogy, [address] [place] Clini igor Histo ry (othe r): Z01.4 19, routi ne scree n, LPS 03/07 neg Phone #: [phone], On-Ca ll Patho logis t: [id number] Not Available [facility] (Centralized Electronic Ordering - All Locations) Patient Can Go To The Location Of Their Choice, [id number] 03/14/2023 11:21:07 03/08/20 23 03/08/2023 fecal occul t blood , stool Occult Blood negati ve Not Available In-Office Order Internal Use Only DO Not Attach Compendium DO Not Attach Compendium, Do Not Delete/merge, [id number] 03/08/2023 12:56:03 04/03/20 24 04/08/2024 IGP, RFX APTIM A HPV ASCU diagnosis: Commen t NEGAT SAYDA FOR INTRA EPITH ELIAL LESIO N OR MALIG MAGAN . Not Available [facility] ([facility]) [address] [facility], [place], [address], 04/08/2024 18:06:00 04/03/20 24 04/08/2024 IGP, RFX APTIM A HPV ASCU specimen adequacy: Bert hirsch Satis facto ry for evalu ation . Not Available [facility] ([facility]) [address] [place], [address], 04/08/2024 18:06:00 04/03/20 24 04/08/2024 IGP, RFX APTIM A HPV ASCU clinician provided ICD10: Bert hirsch Z01.4 19 N92.0 Not Available [facility] ([facility]) [address] [place], [address], 04/08/2024 18:06:00 04/03/2004/08/2024 IGP, RFX APTIM A HPV ASCU performed by: Bert Perez , Sharad hirsch (ASCP ) Not Available [facility] ([facility]) [address] [place], [address], 04/08/2024 18:06:00 04/03/20 24 04/08/2024 IGP, RFX APTIM A HPV ASCU . . Not Available [facility] ([facility]) [address] [place], [address], 04/08/2024 18:06:00 04/03/20 24 04/08/2024 IGP, RFX [...] ts do occur . Not Available [facility] ([facility]) [address] [place], [address], 04/08/2024 18:06:00 04/03/20 24 04/08/2024 IGP, RFX APTIM A HPV ASCU test methodology: Commen t This liqui d based ThinP rep(R ) pap test was scree maggie with the use of an image guide diana hinds. Not Available [facility] ([facility]) [address] [facility], [place], [address], 04/08/2024 18:06:00 04/03/20 24 04/08/2024 IGP, RFX APTIM A HPV ASCU . Commen t The HPV DNA refle x crite michael were not met with this speci men resul t there fore, no HPV testi ng was perfo rmed. Not Available [facility] ([facility]) [address] [facility], [place], [address], 04/08/2024 18:06:00 04/03/20 24 04/03/2024 hemog lobin , gastr ointe luis l, stool Occult Blood negati ve Not Available In-Office Order Internal Use Only DO Not Attach Compendium DO Not Attach Compendium, Do Not Delete/merge, [id number] 04/03/2024 09:43:24 03/15/20 22 03/09/2022 US, pelvi s, trans abdom inal + trans vagin al No observ ation record ed. [email or web address] [facility] [address] [place], [address], 04/27/2022 11:50:11 Result Notes None recorded. Problems Name Problem SNOMED Code Status Onset Date Resolution Date Notes Provider Name and Address Organization Details Recorded Time Diabetes mellitus 59680262 Active 2021 type 2 Leola collins [place] - [facility], 2 14:13:00 Hypertensive disorder 71917206 Active 2021 Leola collins [place] - [facility], 2 14:13:06 Dyspareunia 24005494 Active 2021 Comfort Machuca MD [address] [facility],[address], [place], [address] , [place] - [facility], 2 14:58:24 Irregular periods 60786236 Active 2021 Comfort Machuca MD [address], [place], [address], [facility] - [facility], 2 14:58:32 Problem Notes None recorded. Procedures Surgical History Date Name Laterality Status Provider Name and Address Organization Details Recorded Time 4 Most Recent Mammogram completed Leydi Cuello [place] - [facility], 04/03/2024 09:42:25 3 excision of uterine polyp completed Leydi Hill in [facility], 03/08/2023 13:04:33 2 Endometrial Biopsy completed Comfort Machuca MD [address] [facility],[address], [place], [address], [place] - [facility], 05/03/2022 11:08:20 7 delivery completed Leola Griffith [place] - [facility], 03/07/2022 14:16:15 Imaging Results None recorded. Procedure Notes None recorded. Medical Equipment None [...] index (BMI) Body height Heart rate Systolic And Diastolic Provider Name and Address Organization Details Last Updated DateTime 03/07/2022 989130.9 8 g 45 kg/m2 154.94 cm 78 /min 135/79 mm[Hg] Leola Griffith [place] - [facility], 03/07/2022 14:11:12 Date Recorded Body height Body mass index (BMI) Body weight Heart rate Systolic And Diastolic Provider Name and Address Organization Details Last Updated DateTime 03/08/2023 154.94 cm 45.5 kg/m2 941554.7 6 g 80 /min 128/89 mm[Hg] Leydi Cuello [place] - [facility], 03/08/2023 12:57:50 Date Recorded Body weight Body mass index (BMI) Body height Body temperature Heart rate Systolic And Diastolic Provider Name and Address Organization Details Last Updated DateTime 4 174826. 59 g 42 kg/m2 156.21 cm 97.5 [degF] 88 /min 123/83 mm[Hg] Leydi Wade [facility], 4 09:37:25 Date Recorded Body height Body mass index (BMI) Body weight Heart rate Systolic And Diastolic Provider Name and Address Organization Details Last Updated DateTime 05/03/2022 154.94 cm 44.2 kg/m2 395534.6 1 g 72 /min 142/81 mm[Hg] Leola Wade [facility], 05/03/2022 10:42:51 Social History Question Answer Notes LastModified by Organizat ion Details LastModified Time Tobacco Smoking Status Never Smoker [place] [facility], 03/07/2022 14:15:10 How Many Years Have You Consumed Alcohol? [...] For COVID-19? No Information not available 03/07/2022 What Is The Highest Grade Or Level Of School You Have Completed Or The Highest Degree You Have Received? [id number] Information not available 03/07/2022 Who Is Your Employer? [employer] Information not available 03/07/2022 Are There Any Guns Present In Your Home? No Information not available 03/07/2022 To Which Gender Do You Self-identify? Female Information not available 03/07/2022 What Was The Date Of Your Most Recent Tobacco Screening? 04/03/2024 Information not available 04/03/2024 What Is Your Relationship Status? Information not available 03/07/2022 Are You Sexually Active? Yes Information not available 03/07/2022 How Many Days In The Past Year Have You Consumed 4 Or More Drinks? 0 Information no t available 04/03/2024 Sex: Female Functional Status Question Answer Note LastModified by Organizat ion Details LastModified Time Do you use any illicit or recreational drugs? No Information not available 03/07/2022 Do you or have you ever used any other forms of tobacco or nicotine? No Information not available 03/07/2022 What is your level of alcohol consumption? Occasional Information not available 03/07/2022 Are you currently employed? 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 Moderate Information not available 03/07/2022 Mental Status Question Answer Note LastModified by Organization D etails LastModified Time Do you feel stressed (tense, restless, nervous, or anxious, or unable to sleep at night)? [id number] Information not available 03/07/2022 Family History Relationship Description Onset Age of [...] Immunizations Vaccine Type Date Status Note Provider Alonso north and Address Organization Details Recorded Time Influenza, split virus, quadrivalent, PF 05/20/2021 completed [place]S [place] in [facility], 03/07/2022 14:10:28 COVID-19, mRNA, LNP-S, PF, 100 mcg/0.5mL dose or 50 mcg/0.25mL dose 08/30/2020 completed [place] in [facility], 03/07/2022 14:10:28 COVID-19, mRNA, LNP-S, PF, 100 mcg/0.5mL dose or 50 mcg/0.25mL dose 05/20/2021 ROSS [place] in [facility], 03/07/2022 14:10:28 COVID-19, mRNA, LNP-S, PF, 100 mcg/0.5mL dose or 50 mcg/0.25mL dose 11/15/2020 completed [place]S [place] in [facility], 03/07/2022 14:10:28 COVID-19, mRNA, LNP-S, PF, 100 mcg/0.5mL dose or 50 mcg/0.25mL dose 06/30/2021 ROSS [place] in [facility], 03/07/2022 14:10:28 COVID-19, mRNA, LNP-S, PF, 100 mcg/0.5mL dose or 50 mcg/0.25mL dose 08/02/2020 ROSS [place] in [facility], 03/07/2022 14:10:28 Influenza, split virus, trivalent, PF 04/27/2021 ROSS [place] in [facility], 05/03/2022 10:46:59 Past Encounters Encounter ID Performer Location Encounter Start Date Encounter Closed Date Diagnosis/Indication Diagnosis SNOMED-CT Code Diagnosis ICD10 Code Diagnosis Note [id number] MD COMFORT Vilchis MD [address] [place], [place] [address] [address] 03/07/2022 13:52:13 03/07/2022 15:36:56 Specialized medical examination 45782668 Z01.419 Screening for malignant neoplasm of rectum 441320826 Z12.12 Screening mammography 24 873722 Z12.31 Pain in pelvis 29204245 R10.2 Dyspareunia 79316857 N94 .10 Diabetes mellitus 207879 09 E11.9 Irregular periods 323389 07 N92.6 Hypertensive disorder 38 344159 I10 [id number] MD COMFORT Vilchis MD [address] [place], [place] [address] [place] [address] 05/03/2022 10:37:52 05/03/2022 11:32:40 Oligoovulatory dysfunctional uterine bleeding 250760843 N93.8 [id number] MD COMFORT Vilchis MD [address] [place] [address] [place] [address] 05/18/2022 08:06:20 05/18/2022 08:59:09 Polyp of corpus uteri 49904649 N84.0 Pain in pelvis 35221159 R10.2 Dyspareunia 62761424 N94 .12 [id number] MD COMFORT Vilchis MD [address] [place] [address] [place] [address] 03/08/2023 12:52:59 03/08/2023 13:36:18 Specialized medical examination 48554796 Z01.419 Screening for malignant neoplasm of rectum 308750013 Z12.12 Screening mammography 24 052582 Z12.31 [id number] MD COMFORT Vilchis MD [address] [place] [address] [place] [address] 04/03/2024 09:10:22 04/03/2024 10:44:39 Specialized medical examination 05054644 Z01.419 Screening for malignant neoplasm of rectum 432979698 Z12.12 Screening mammography 24 972473 Z12.31 Menorrhagia 477226792 N9 2.0 Health Concerns Section Related Observation LastModified by Organization Detai ls LastModified Time None Recorded Concern Status LastModified by Organization Details LastModified Time None Recorded Advance Directives Directive None Recorded Payers Insurance Date Sequence Insurance Name Policy Number Policy Polk Covered Member ID Polk Member ID Guarantor Name 03/31/[address] [place] [address] ([facility]) [id number] Fina Mckinnon [id number] Fina Mckinnon Notes Date Note Type Note Provider Name and Address Organization Details Recorded Time 03/07/2022 text/html She is here as a new patient for annual exam. She has not had a audit tech since 2019, her PCP was doing her [...] and cramping pain. Comfort Machuca MD [address] [facility],[address], [place], [address], [facility] - [facility], 03/07/2022 15:00:03 05/03/2022 text/html She is here for emb after sonogram shows a 1.1 cm endometrium with multiple small cystic areas. the sono was done because she has cramping midline pain and pressure after intercourse for years. Comfort Machuca MD [address] [facility],[address], [place], [address], [facility] - [facility], 05/03/2022 11:21:15 05/18/2022 text/html This visit is a phone telehealth visit. The patient consented to the visit by phone. The patient was at home at the time of the call and the provider and patient were the only people on the line. I was at [address] [facility], [address], [place], [place], at the time of the call. [...] getting pushed aside. Comfort Machuca MD [address] [facility],[address], [place], [address], [place] - [facility], 05/18/2022 08:54:10 03/08/2023 text/html She is here [...] annual exam. She has not had a audit tech since 2019, her PCP was doing her paps.She has [...] pain with dyspareunia. Comfort Machuca MD [address] [facility],[address], [place], [address], [place] - [facility], 03/08/2023 13:26:04 04/03/2024 text/html She is here [...] she needs intervention. Comfort Machuca MD [address] [facility],[address], [place], [address], [place] - [facility], 04/03/2024 10:42:21 OBGyn Episode No OBEpisode recorded.
--- OUTSIDE RECORDS SUMMARY | 2024-12-02 08:15 | XMS_ITS | Clinical Summary ---
Author Organization [facility]] lin Address [address] [place] [address] Care Team Providers Care Visitor Services Technician Name Role Phone Pcp, No Primary Care Provider [phone] Social History Tobacco Use Types Packs/Day Years [...] Adults 18 yrs or above (or HM Modifier)([facility]) 1992 Hepatitis C Virus Infection in Adolescents and Adults: Screening (or Modifier) ([facility]) [address] [facility] Screening Reminder: Maria Isabel abernathy for all adults ([facility]) 1992 Tobacco Smoking Cessation: i n Adults excluding Women: Behavioral and Pharmacotherapy Interventions ([facility]) 1992 DTaP/Tdap/Td Vaccines ([facility]) (1 - Tdap) 1993 Cervical Cancer Screenin 1-65 yrs of age (or Modifier) 08/07/1995 Cervical Cancer Screening: P ap every 3 yrs pts age 21-65 08/07/1995 Cervical Cancer: Pap Screeni ng with Modifier timing ([facility]) 08/07/1995 Cervical Cancer: hrHPV alone or with cotesting Pap for Pts 30-65yrs screening every 5yrs ([facility]) 08/07/1995 Colorectal Cancer Screening 45 -75 Yrs (or HM Modifier ) 08/07/2019 Colorectal Cancer: FLEXIBLE SIGMOIDOSCOPY Screening every 5 yrs 08/07/2019 Colorectal Cancer: Fecal Imm unochemical Test (FIT) Annually [facility] 08/07/2019 Colorectal Cancer: High-sens itivity gFOBT Screening Annually [facility] 08/07/2019 Colorectal Cancer: Stool Col oguard Screening every 3 yrs 08/07/2019 Colorectal Cancer:CT Colonography Screening every 5 yr s 08/07/2019 COVID-19 Vaccine Screening: Initial Series and Booster Status ([facility]) ( - 2023- season) 2024 Breast Cancer: Screening Maria Isabel ually age 50-74 yrs (or HM Modifier)([facility]) 2024 Pneumococcal Vaccination Scr eening: Patients 50+ yrs of age ([facility]) (1 of 1 - PCV) 2024 Zoster/Shingles Vaccine Seri es Screening: Adults aged 18+ yrs (or HM Modifiers)([facility]) (1 of 2) 2024 Flu Vaccination: Yearly for ages 18mos through 64 years (or Modifier)([facility]) 12/19/2024 Medical Devices Not on file Insurance Care Teams Visitor Services Technician Relationship Specialty Start Date End Date Pcp, No PCP - General Family Medicine 03/21/21
[2024-12-02 08:47] LABS: Hemoglobin A1C 190.1507 umol/L; Total Hemoglobin (HGBA1C) 3895.2544 umol/L
[2024-12-02 09:16] LABS: Alanine Aminotransferase 21 U/L (0-31); Albumin Level 4.3 g/dL (3.5-5.0); Alkaline Phosphatase 82 U/L (39-117); Anion Gap 12 (12-20); Aspartate Amino Transferase 20 U/L (5-31); Blood Urea Nitrogen 18 mg/dL (9-16); Calcium 9.1 mg/dL (8.4-10.2); Carbon Dioxide 28 mmol/L (22-29); Chloride 104 mmol/L (96-108); Cholesterol 147 mg/dL (<200); Estimated Glomerular Filt Rate > 60; HDL Cholesterol 50 mg/dL (>40); Potassium 4.5 mmol/L (3.3-5.1); Sodium 139 mmol/L (135-145); Total Protein 7.6 g/dL (6.5-8.0); Triglycerides 91 mg/dL (<150)
[2024-12-02 09:35] LABS: Thyroid Stimulating Hormone 2.03 uIU/mL (0.32-4.0)
== END 2024-12-02 08:11 | disposition home or self-care (01) ==
LOC: HO.LAB 08:10
PROVIDERS: PCP Internal Medicine; Visit Provider Internal Medicine
DX: E11.9 Type 2 diabetes mellitus without complications (principal); K59.00 Constipation, unspecified; R14.0 Abdominal distension (gaseous)
CPT/HCPCS: 36415; 80053; 80061; 82043; 82570; 83036; 84443

== ENCOUNTER 2025-03-06 07:22 | Outpatient (REF) | payer OTHER, SELFPAY ==
--- OUTSIDE RECORDS SUMMARY | 2025-03-06 07:25 | XMS_ITS | Clinical Summary ---
Author Organization [facility] Address [address] [place] [id number] Phone Care Team Providers Care Chair Trimmer Name Role Phone Nila Lebron MD Primary Care Provider [phone] Allergies Active Allergy Reactions Criticality Noted Date [...] Medical History Date Comments Hypertension Diabetes mellitus ([facility] V24, [facility] V28) Social History Tobacco Use Types Packs/Day Years Used Date Smoking Tobacco: Never Smokeless Tobacco: Never Tobacco Cessation:Counseling Given: Not Answered Alcohol Use Standard Drinks/Week Comments Yes 0 (1 standard drink = 0.6 oz pur e alcohol) OCC Interpersonal Safety Answer Date Record ed Physical Abuse Unrecognized value 05/22/2024 Verbal Abuse Unrecognized value 05/22/2024 Comments No Sex and Gender Information [...] 1993 Cervical Cancer Screening: Pap Smear 08/07/1995 HIV Screening 12/11/2023 Hepatitis C Screening 12/11/2023 Medicare Annual Wellness Visit 12/11/2023 Social Influencers of Health Screening 12/11/2023 Depression Screening 05/21/2024 Pneumococcal Vaccine: 50+ Years (1 of 1 - PCV) 2024 RSV Immunization Adult Patients (1 - Risk 50-74 years 1-dose series) 2024 Zoster Vaccines (1 of 2) 2024 COVID-19 Vaccine ( season) 2025 06/30/2021, 05/20/2021, 11/15/2020, Additional history exists Influenza Vaccine (#1) 2025 05/20/2021, 2020 Colorectal [...] Maintenance Results * COLONOSCOPY Anesthesia - MAC; [facility] ENDOSCOPY (05/22/2024 10:30 AM EST) Anatomical Region Laterality Modality Endoscopy 05/22/2024 10:1 6 AM EST Impressions 05/22/2024 10:32 AM EST - Internal hemorrhoids. - The examination was otherwise normal. - No specimens collected. Recommendation: - Discharge patient to home. - Repeat colonoscopy in 10 years for screening purposes. Narrative 05/22/2024 10:32 AM EST [facility] GI Patient Name: Becky Mckinnon Procedure Date: [...] verified by the physician, the nurse, the clinical auditor and the simulation technician in the pre-procedure area in the [...] malignant neoplasm of colon CPT copyright 2020 [employer]. All rights reserved. The codes documented in this report are preliminary and upon coat ironer hand review may be revised to meet current compliance requirements. Eli Kirk MD 05/22/2024 10:32:11 AM This report has been signed electronically.Eli Kirk MD Number of Addenda: 0 Note Initiated On: 05/22/2024 10:16 AM Scope Withdrawal Time: 0 hours 6 minutes 26 seconds Scope In: 10:21:05 AM Scope Out: 10:30:38 AM Endoscopy Department at [facility] - [address] [place] [phone] Procedure Note Eli Kirk MD - 05/22/2024 [facility] GI Patient Name: Becky Mckinnon Procedure Date: [...] the physician, the nurse, theanesthetist and the simulation technician in the pre-procedure area in the [...] for malignantneoplasm of colon CPT copyright 2020 [employer]. All rights reserved. The codes documented in this report are preliminary and upon coat ironer hand reviewmay be revised to meet current compliance requirements. Eli Kirk MD 05/22/2024 10:32:11 AM This report has been signed electronically.Eli Kirk MD Number of Addenda: 0 Note Initiated On: 05/22/2024 10:16 AM Scope Withdrawal Time: 0 hours 6 minutes 26 seconds Scope In: 10:21:05 AM Scope Out: 10:30:38 AM Endoscopy Department at [facility] - [address] [place] [phone] IMPRESSION: - Internal hemorrhoids. - The examination [...] Mckinnon Payer ID:[id number] Type:Not on file Address: [facility] [id number] Care Teams Chair Trimmer Relationship Specialty Start Date End Date Nila Lebron MD [address] [place] [address] [place] [address] PCP - General 09/25/23
--- OUTSIDE RECORDS SUMMARY | 2025-03-06 07:25 | XMS_ITS | Data Portability ---
Author Organization [place] - [facility],, COMFORT MACHUCA MD Address [address] [address] Care Team Providers Care Karate Teacher Name Role Phone VERÓNICA FORD Primary Care Provider Assessment No assessment recorded. Plan of Treatment Reminders Order Date Submit Date Provider Last Modified By Organization Details Last Modified Time Details Appointments ANNUAL EXAM 2024 09:20A M Comfort Machuca MD Not available Not available Not available Lab cytology report, thin prep, smear or scraping, cervical or vaginal 2023 024 RANDY [facility] (Centralized Electronic Ordering - All Locations), Patient Can Go To The Location Of Their Choice, [id number] 04/08/2024 18:06:00 CBC w/ auto diff 2023 024 [email or web address] [facility] (Centralized Electronic Ordering - All Locations), Patient Can Go To The Location Of Their Choice, [id number] 12/29/2024 07:32:36 iron + TIBC + ferritin, serum 2023 024 [email or web address] [facility] (Centralized Electronic Ordering - All Locations), Patient Can Go To The Location Of Their Choice, [id number] 12/29/2024 07:32:36 TSH + free T4, serum 2023 024 [email or web address] [facility] (Centralized Electronic Ordering - All Locations), Patient Can Go To The Location Of Their Choice, [id number] 12/29/2024 07:32:36 beta-HCG, qualitati ve, serum or plasma 2023 024 [email or web address] [facility] (Centralized Electronic Ordering - All Locations), Patient Can Go To The Location Of Their Choice, [id number] 12/29/2024 07:32:36 hemoglobi n, gastroint estinal, stool 2023 024 [email or web address] 1 In-Office Order, Internal Use Only DO Not Attach Compendium DO Not Attach Compendium, Do Not Delete/merge, [id number] 04/03/2024 10:08:56 pap test, thinprep, cervical 2022 023 [facility] (Centralized Electronic Ordering - All Locations), Patient Can Go To The Location Of Their Choice, [id number] 03/15/2023 07:32:44 fecal occult blood, stool 2022 023 [email or web address] 1 In-Office Order, Internal Use Only DO Not Attach Compendium DO Not Attach Compendium, Do Not Delete/merge, [id number] 03/08/2023 13:25:05 biopsy, endometri al 2021 022 [email or web address] [facility] (Centralized Electronic Ordering - All Locations), Patient Can Go To The Location Of Their Choice, [id number] 05/10/2022 07:32:14 pap test, thinprep, cervical 2021 022 [email or web address] [facility] (Centralized Electronic Ordering - All Locations), Patient Can Go To The Location Of Their Choice, [id number] 03/14/2022 07:32:05 fecal occult blood, stool 2021 022 [email or web address] In-Office Order, Internal Use Only DO Not Attach Compendium DO Not Attach Compendium, Do Not Delete/merge, [id number] 03/07/2022 15:36:47 Referral gynecolog ic surgery referral - portion of hyperplas tic endometri al polyp, without atypia, removed in office, may be remaining polyp in situ, for possible D and C with hysterosc opy [address] [facility], [address] [facility], [facility] [address], [place], [address], 01/29/2023 08:02:51 Procedures None recorded. Surgeries None recorded. Imaging MAMMO, screening , digital, bilateral - Breast Aspiratio n and/or Biopsy if needed 2023 024 [facility] (Mammo), [address] [facility] [place], [address], 04/03/2024 10:44:39 MAMMO, screening , digital, bilateral - Breast Aspiratio n and/or Biopsy if needed 2022 023 [facility] (Mammo), [address] [facility], [address], 03/03/2024 07:41:07 MAMMO, screening , digital, bilateral 2021 022 [facility] (Mammo), [address] [facility], [address], 02/25/2024 07:40:29 US, pelvis, transabdo nikki + transvagi nal - deep dyspareun ia for a year 2021 022 [facility] (Imaging), [address] [place] [address], [place], [address], 03/15/2022 15:39:14 Medication Orders Lo Loestrin Fe 1 mg-10 mcg (24)/10 mcg (2) tablet 2023 024 [place] [id number], [address], [place], [id number], 04/03/2024 10:09:15 Patient TargetsNo targets recorded. Patient Instructions Encounter Date Encounter Id Patient Instructions Last Modified By Organization Details Last Modified Time 03/07/2022 [id number] learning about healthy weight Not available 03/07/2022 14:50:16 She is here as a new patient for annual exam. She has not had a coiled coil inspector since 2019, her PCP was doing her [...] the breast. Not available 03/07/2022 14:59:24 05/03/2022 [id number] abnormal uterine bleeding: care instructions Not available 05/03/2022 11:07:46 endometrial biopsy: about this test Not available 05/03/2022 11:07:46 She is here for emb after sonogram shows a 1.1 cm endometrium with multiple small cystic areas. the sono was done because she has cramping midline pain and pressure after intercourse for years. She tolerated emb moderately well, it was crampy for a few minutes afterward. Await results. Not available 05/03/2022 11:08:53 05/18/2022 [id number] This visit is a phone telehealth visit. The patient consented to the visit by phone. The patient was at home at the time of the call and the provider and patient were the only people on the line. I was at [address] [place] [address], [address], [place], [place], at the time of the call. [...] minutes chevy Not available 05/18/2022 08:53:48 03/08/2023 [id number] learning about healthy weight [email or web address] Not available 03/08/2023 13:25:05 She is here [...] annual exam. She has not had a coiled coil inspector since 2018, her PCP was doing her paps. She [...] , by Dr. Herring. All questions answered. [email or web address] Not available 03/08/2023 13:25:47 04/03/2024 [id number] learning about healthy weight Not available 04/03/2024 10:08:20 heavy menstrual periods: care instructions [email or web address] Not available 04/03/2024 10:09:10 She is here [...] Flag Note LastModifiedBy Organization Detail LastModifiedTime 03/07/2003/07/2022 [facility] CYTOL OGY results Patie nt Name: FINA CROFT nt : 1975 (Age: 46) Lab Acces myrna #: [id number] Colle ction Date: 03/07 Acces myrna Date: 03/08 Sign Out Date: 03/13 Tissu e Sourc e: 1: THINP REP PARTS SALES REPRESENTATIVE PAP TEST, CERVI IGOR: Final Diagn osis: [...] m with jose madsen or iqra summers Perfethan rmed at [facility] ate Refer ence Labor atory depar tment of Cytol ogy, [address] [place] Clini igor Histo ry (othe r): routi ne scree n Phone #: [phone], On-Ca ll Patho logis t: [id number] Not Available [facility] (Centralized Electronic Ordering - All Locations) Patient Can Go To The Location Of Their Choice, [id number] 03/13/2022 09:07:33 03/07/20 22 03/07/2022 fecal occul t blood , stool Occult Blood negati ve Not Available In-Office Order Internal Use Only DO Not Attach Compendium DO Not Attach Compendium, Do Not Delete/merge, [id number] 03/07/2022 14:00:26 05/03/20 22 05/03/2022 [facility] SURGI IGOR PATHO LOGY results Patie nt Name: FINA CROFT Lab Acces myrna #: [id number] Patie nt : 1975 (Age: 46) Colle ction [...] tiple piece s, x2. (HG)* Phone #: [phone], On-Ca ll Patho logis t: [id number] Not Available [facility] (Centralized Electronic Ordering - All Locations) Patient Can Go To The Location Of Their Choice, [id number] 05/08/2022 10:37:15 03/08/20 23 03/08/2023 [facility] CYTOL OGY results Patie nt Name: FINA CROFT nt : 1975 (Age: 47) Lab Acces myrna #: [id number] Colle ction Date: 03/08 Acces myrna Date: 03/08 Sign Out Date: 03/14 Tissu e Sourc e: 1: THINP REP [employer]S SALES REPRESENTATIVE PAP TEST, CERVI IGOR: Final Diagn osis: [...] madsen or iqra summers Perfo rmed at [facility] ate Refer ence Labor atory depar tment of Cytol ogy, [address] [place] Clini igor Histo ry (othe r): Z01.4 19, routi ne scree n, LPS 03/07 neg Phone #: [phone], On-Ca ll Patho logis t: [id number] Not Available [facility] (Centralized Electronic Ordering - All Locations) Patient Can Go To The Location Of Their Choice, [id number] 03/14/2023 11:21:07 03/08/20 23 03/08/2023 fecal occul t blood , stool Occult Blood negati ve Not Available In-Office Order Internal Use Only DO Not Attach Compendium DO Not Attach Compendium, Do Not Delete/merge, [id number] 03/08/2023 12:56:03 04/03/20 24 04/08/2024 IGP, RFX APTIM A HPV ASCU diagnosis: Commen t NEGAT SAYDA FOR INTRA EPITH ELIAL LESIO N OR MALIG MAGAN . Not Available [facility] ([facility]) [address] [facility], [place], [address], 04/08/2024 18:06:00 04/03/20 24 04/08/2024 IGP, RFX APTIM A HPV ASCU specimen adequacy: Bert hirsch Satis facto ry for evalu ation . Not Available [facility] ([facility]) [address] [place], [address], 04/08/2024 18:06:00 04/03/20 24 04/08/2024 IGP, RFX APTIM A HPV ASCU clinician provided ICD10: Bert hirsch Z01.4 19 N92.0 Not Available [facility] ([facility]) [address] [place], [address], 04/08/2024 18:06:00 04/03/20 24 04/08/2024 IGP, RFX APTIM A HPV ASCU performed by: Sharad Dallas (ASCP ) Not Available [facility] ([facility]) [address] [place], [address], 04/08/2024 18:06:00 04/03/20 24 04/08/2024 IGP, RFX APTIM A HPV ASCU . . Not Available [facility] ([facility]) [address] [place], [address], 04/08/2024 18:06:00 04/03/20 24 04/08/2024 IGP, RFX APTIM A HPV ASCU note: Bert hirsch The Pap smear is a scree noni test desig maggie to aid in the detec tion of elizabeth ligna nt and malig nant condi tions of the uteri ne cervi x. It is not a diagn ostic proce dure and shoul d not be used as the sole means of detec ting cervi igor cance r. Both false -posi tive and false -nega tive repor ts do occur . Not Available [facility] ([facility]) [address] [place], [address], 04/08/2024 18:06:00 04/03/20 24 04/08/2024 IGP, RFX APTIM A HPV ASCU test methodology: Commen t This liqui d based ThinP rep(R ) pap test was percy serrano with the use of an image guide diana murry Not Available [facility] ([facility]) [address] [facility], [place], [address], 04/08/2024 18:06:00 04/03/20 24 04/08/2024 IGP, RFX APTIM A HPV ASCU . Commen t The HPV DNA refle x crite michael were not met with this speci men resul t there fore, no HPV testi ng was perfo rmed. Not Available [facility] ([facility]) [address] [facility], [place], [address], 04/08/2024 18:06:00 04/03/20 24 04/03/2024 hemog lobin , gastr ointe luis l, stool Occult Blood negati ve Not Available In-Office Order Internal Use Only DO Not Attach Compendium DO Not Attach Compendium, Do Not Delete/merge, [id number] 04/03/2024 09:43:24 03/15/20 22 03/09/2022 US, pelvi s, trans abdom inal + trans vagin al No observ ation record ed. [email or web address] [facility] [address] [place], [address], 04/27/2022 11:50:11 Result Notes None recorded. Problems Name Problem SNOMED Code Status Onset Date Resolution Date Notes Provider Name and Address Organization Details Recorded Time Diabetes mellitus 09192115 Active 2021 type 2 Leola collins [place] - [facility], 2 14:13:00 Hypertensive disorder 24004475 Active 2021 Leola collins [place] - [facility], 2 14:13:06 Dyspareunia 59020165 Active 2021 Comfort Machuca MD [address], [place], [address], [place] - [facility], 2 14:58:24 Irregular periods 18611050 Active 2021 Comfort Machuca MD [address], [place], [address], [place] - [facility], 2 14:58:32 Problem Notes None recorded. Procedures Surgical History Date Name Laterality Status Provider Name and Address Organization Details Recorded Time 4 Most Recent Mammogram completed Leydi Cuello [place] - [facility], 04/03/2024 09:42:25 3 excision of uterine polyp completed Leydi Cuello [place] - [facility], 03/08/2023 13:04:33 2 Endometrial Biopsy completed Comfort Machuca MD [address], [place], [address], [place] - [facility], 05/03/2022 11:08:20 7 delivery completed Leola Griffith [place] - [facility], 03/07/2022 14:16:15 Imaging Results None recorded. Procedure [...] Address Organization Details Last Updated DateTime 03/07/2022 794231.9 8 g 45 kg/m2 154.94 cm 78 /min 135/79 mm[Hg] Leola Griffith [place] - [facility], 03/07/2022 14:11:12 Date Recorded Body height Body mass index (BMI) Body weight Heart rate Systolic And Diastolic Provider Name and Address Organization Details Last Updated DateTime 03/08/2023 154.94 cm 45.5 kg/m2 222272.7 6 g 80 /min 128/89 mm[Hg] Leydi [facility], 03/08/2023 12:57:50 Date Recorded Body weight Body mass index (BMI) Body height Body temperature Heart rate Systolic And Diastolic Provider Name and Address Organization Details Last Updated DateTime 4 502488. 59 g 42 kg/m2 156.21 cm 97.5 [degF] 88 /min 123/83 mm[Hg] Leydi [facility], 4 09:37:25 Date Recorded Body height Body mass index (BMI) Body weight Heart rate Systolic And Diastolic Provider Name and Address Organization Details Last Updated DateTime 05/03/2022 154.94 cm 44.2 kg/m2 738060.6 1 g 72 /min 142/81 mm[Hg] Leola [facility], 05/03/2022 10:42:51 Social History Question Answer Notes LastModified by Organizat ion Details LastModified Time Tobacco Smoking Status Never Smoker Leola collins [place] - [facility], 03/07/2022 14:15:10 How Many Years Have You [...] Or The Highest Degree You Have Received? [id number] Information not available 03/07/2022 Who Is Your Employer? 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 Moderate Information not available 03/07/2022 Mental Status Question Answer Note LastModified by Organization D etails LastModified Time Do you feel stressed (tense, restless, nervous, or anxious, or unable to sleep at night)? [id number] Information not available 03/07/2022 Family History Relationship Description Onset Age of this Age Resolved Age Notes LastModified by Organization Details LastModified Time Father No current problems or disability Not available 03/07 14:13:15 Mother No current problems or disability Not available 03/07 14:13:15 Medical History Condition Response Anesthesia complications N High Blood Pressure N Candidate for MyRisk panel N Autoimmune Condition N Kidney or Bladder Problems N Thyroid Problems N Depression N Lung Disease N GI Problems N Defects or Inherited Disease N History of Ovarian Cancer N Anemia N History of Breast Cancer N NIR [...] quadrivalent, PF 05/20/2021 completed [place] in [facility], 03/07/2022 14:10:28 COVID-19, mRNA, LNP-S, PF, 100 mcg/0.5mL dose or 50 mcg/0.25mL dose 08/30/2020 completed [place] in [facility], 03/07/2022 14:10:28 COVID-19, mRNA, LNP-S, PF, 100 mcg/0.5mL dose or 50 mcg/0.25mL dose 05/20/2021 completed [place] in [facility], 03/07/2022 14:10:28 COVID-19, mRNA, LNP-S, PF, 100 mcg/0.5mL dose or 50 mcg/0.25mL dose 11/15/2020 completed [place] in [facility], 03/07/2022 14:10:28 COVID-19, mRNA, LNP-S, PF, 100 mcg/0.5mL dose or 50 mcg/0.25mL dose 06/30/2021 completed [place] in [facility], 03/07/2022 14:10:28 COVID-19, mRNA, LNP-S, PF, 100 mcg/0.5mL dose or 50 mcg/0.25mL dose 08/02/2020 completed [place] in [facility], 03/07/2022 14:10:28 Influenza, split virus, trivalent, PF 04/27/2021 completed Leola Nacho null, [place] - [facility], 05/03/2022 10:46:59 Past Encounters Encounter ID Performer Location Encounter Start Date Encounter Closed Date Diagnosis/Indication Diagnosis SNOMED-CT Code Diagnosis ICD10 Code Diagnosis IMO Codes Diagnosis Note [id number] MD COMFORT Vilchis MD [address] [place] [address],[place] [address] 03/07/2022 13:52:13 03/07/2022 15:36:56 Specialized medical examination 42572376 Z01.419 Screening for malignant neoplasm of rectum 047480558 Z12.12 Screening mammography 24 587886 Z12.31 Pain in pelvis 59034433 R10.2 Dyspareunia 16093447 N94 .10 Diabetes mellitus 743743 09 E11.9 Irregular periods 747652 07 N92.6 Hypertensive disorder 38 477836 I10 [id number] MD COMFORT Vilchis MD [address] [place] [address],[place] [address] 05/03/2022 10:37:52 05/03/2022 11:32:40 Oligoovulatory dysfunctional uterine bleeding 471231900 N93.8 [id number] MD COMFORT Vilchis MD [address] [place] [address],[place] [address] 05/18/2022 08:06:20 05/18/2022 08:59:09 Polyp of corpus uteri 24781776 N84.0 Pain in pelvis 82261111 R10.2 Dyspareunia 85932732 N94 .12 [id number] MD COMFORT Vilchis MD [address] [place] [address],[place] [address] 03/08/2023 12:52:59 03/08/2023 13:36:18 Specialized medical examination 13169616 Z01.419 Screening for malignant neoplasm of rectum 600467527 Z12.12 Screening mammography 24 210775 Z12.31 [id number] MD COMFORT Vilchis MD [address] [place] [address],[place] [address] 04/03/2024 09:10:22 04/03/2024 10:44:39 Specialized medical examination 85997968 Z01.419 Screening for malignant neoplasm of rectum 608211881 Z12.12 Screening mammography 24 065907 Z12.31 Menorrhagia 546193448 N9 2.0 Health Concerns Section Related Observation LastModified by Organization Detai ls LastModified Time None Recorded Concern Status LastModified by Organization Details LastModified Time None Recorded Advance Directives Directive None Recorded Payers Insurance Date Sequence Insurance Name Policy Number Policy Polk Covered Member ID Polk Member ID Guarantor Name 03/31/[address] [place] [address] ([facility]) [id number] Fina Mckinnon [id number] Fina Mckinnon Notes Date Note Type Note Provider Name and Address Organization Details Recorded Time 03/07/2022 text/html She is here as a new patient for annual exam. She has not had a coiled coil inspector since 2019, her PCP was doing her paps. She notes that since she had her section 25 years ago she had had irregular menses, every 3 to 4 months. She had a [facility] for IVF, however she never conceived and no etiology was found. At that time she had a sonogram, 10 years ago, that showed scar tissue. She has had deep dyspareunia for a year, is not sure of the etiology, I feel bloated, afterward, and cramping pain. Comfort Machuca MD [address] [place] [address],[address], [place], [address], [employer], 03/07/2022 15:00:03 05/03/2022 text/html She is here for emb after sonogram shows a 1.1 cm endometrium with multiple small cystic areas. the sono was done because she has cramping midline pain and pressure after intercourse for years. Comfort Machuca MD [address] [place] [address],[address], [place], [address], [employer], 05/03/2022 11:21:15 05/18/2022 text/html This visit is a phone telehealth visit. The patient consented to the visit by phone. The patient was at home at the time of the call and the provider and patient were the only people on the line. I was at [address] [place] [address], [address], [place], at the time of the call. She [...] kept getting pushed aside. Comfort Machuca MD [address] [place] [address],[address], [facility], [address], [place] - [facility], [...] annual exam. She has not had a coiled coil inspector since 2019, her PCP was doing her [...] pain with dyspareunia. Comfort Machuca MD [address] [facility],[address], [place], [address], [place] - [facility], 03/08/2023 13:26:04 04/03/2024 text/html She is here [...] she needs intervention. Comfort Machuca MD [address] [facility],[address], [place], [address], [place] - [facility], 04/03/2024 10:42:21 OBGyn Episode No OBEpisode recorded.
--- OUTSIDE RECORDS SUMMARY | 2025-03-06 07:25 | XMS_ITS | Clinical Summary ---
Author Organization [facility] Address [address] [facility] [address] [place] [address] Phone Care Team Providers Care Blower Insulator Name Role Phone Nila Lebron MD Primary Care Provider Allergies No known active allergies Medications atorvastatin (LIPITOR) 20 MG tablet Take 1 tablet by mouth daily. 09/01/2022 Active JARDIANCE 10 mg tablet Take 1 tablet by mouth every morning. Active fluticasone propionate (FLONASE) 50 mcg/actuation nasal spray INSTILL 1 SPRAY INTO EACH NSTRIL DAILY Active losartan-hydroC HLOROthiazide (HYZAAR) 50-12.5 mg per tablet Take 1 [...] with a working camera? Not on file Comments Unknown Sex and Gender Information Value Date Recorded Sex Assigned at Female 11/08/2023 6:01 AM EDT Legal Sex Female 1:19 PM EDT Gender Identity Female 11/08/2023 6:01 AM [...] FOBT 08/07/2019 SIGMOIDOSCOPY 08/07/2019 VIRTUAL COLONOSCOPY 08/07/2019 PNEUMOCOCCAL VACCINES (50+ years) (1 of 1 - PCV) 2024 RSV VACCINE (1 - Risk 50-74 years 1-dose series) 2024 ZOSTER VACCINES (1 of 2) 2024 INFLUENZA VACCINE (#1) 2024 05/20/2021, 2020 COVID-19 VACCINE ( season) 2025 06/30/2021, 05/20/2021, 11/15/2020, Additional history exists SMOKING STATUS SCREENING (Once After 26 Yrs) Completed 12/06/2023 HEPATITIS A VACCINES Aged Out No long er eligible based on patient's age to complete this topic HIB VACCINES Aged Out No longer eligi ble based on patient's age to complete this topic MENINGOCOCCAL VACCINES (ACWY) Aged Out No longer eligible based on patient's age to complete this topic MENINGOCOCCAL VACCINES (B) Aged Out N o longer eligible based on patient's age to complete this topic Medical Devices Not on file Insurance [facility] [address] [place] [address] Care Teams Blower Insulator Relationship Specialty Start Date End Date Nila Lebron MD [address] [place] [address] [place] [address] PCP - General Internal Medicine 10/19/23 Additional Source Comments The information contained in this document represents components of the legal health record. It is not the complete legal health record.[facility]
--- OUTSIDE RECORDS SUMMARY | 2025-03-06 07:25 | XMS_ITS | Clinical Summary ---
Author Organization [facility] & [facility] lin Address [address] [place] [address] Care Team Providers Care Mobile Heavy Equipment Mechanic Name Role Phone Pcp, No Primary Care Provider [phone] Social History Tobacco Use Types Packs/Day Years [...] Adults 18 yrs or above (or HM Modifier)([facility]) 1992 Hepatitis C Virus Infection in Adolescents and Adults: Screening (or Modifier) ([facility]) 1992 [facility] Screening Reminder: Maria Isabel abernathy for all adults ([facility]) 1992 Tobacco Smoking Cessation: i n Adults excluding Women: Behavioral and Pharmacotherapy Interventions ([facility]) 1992 DTaP/Tdap/Td Vaccines ([facility]) (1 - Tdap) 1993 Cervical Cancer Screenin 1-65 yrs of age (or Modifier) 08/07/1995 Cervical Cancer Screening: P ap every 3 yrs pts age 21-65 08/07/1995 Cervical Cancer: Pap Screeni ng with Modifier timing ([facility]) 08/07/1995 Cervical Cancer: hrHPV alone or with cotesting Pap for Pts 30-65yrs screening every 5yrs ([facility]) 08/07/1995 Colorectal Cancer Screening 45 -75 Yrs (or HM Modifier ) 08/07/2019 Colorectal Cancer: FLEXIBLE SIGMOIDOSCOPY Screening every 5 yrs 08/07/2019 Colorectal Cancer: Fecal Imm unochemical Test (FIT) Annually [facility] 08/07/2019 Colorectal Cancer: High-sens itivity gFOBT Screening Annually [facility] 08/07/2019 Colorectal Cancer: Stool Col oguard Screening every 3 yrs 08/07/2019 Colorectal Cancer:CT Colonography Screening every 5 yr s 08/07/2019 Breast Cancer: Screening Maria Isabel uallcarlos eduardo age 50-74 yrs (or HM Modifier)([facility]) 2024 Pneumococcal Vaccination Scr eening: Patients 50+ yrs of age ([facility]) (1 of 1 - PCV) 2024 Zoster/Shingles Vaccine Seri es Screening: Adults aged 18+ yrs (or HM Modifiers)([facility]) (1 of 2) 2024 Flu Vaccination: Yearly for ages 18mos through 64 years (or Modifier)([facility]) 12/19/2024 COVID-19 Vaccine Screening: Initial Series and Booster Status ([facility]) ( - 2023- season) 2025 Medical Devices Not on file Insurance Care Teams Mobile Heavy Equipment Mechanic Relationship Specialty Start Date End Date Pcp, No PCP - General Family Medicine 03/21/21
[2025-03-06 08:55] LABS: Alanine Aminotransferase 19 U/L (0-31); Albumin Level 4.6 g/dL (3.5-5.0); Alkaline Phosphatase 95 U/L (39-117); Anion Gap 13 (12-20); Aspartate Amino Transferase 18 U/L (5-31); Blood Urea Nitrogen 16 mg/dL (9-16); Calcium 9.4 mg/dL (8.4-10.2); Carbon Dioxide 27 mmol/L (22-29); Chloride 103 mmol/L (96-108); Estimated Glomerular Filt Rate > 60; Potassium 4.4 mmol/L (3.3-5.1); Sodium 139 mmol/L (135-145); Total Protein 7.6 g/dL (6.5-8.0)
== END 2025-03-06 07:23 | disposition home or self-care (01) ==
LOC: HO.LAB 07:22
PROVIDERS: PCP Internal Medicine; Visit Provider Internal Medicine
DX: Z00.00 Encounter for general adult medical examination without abnormal findings (principal); E11.9 Type 2 diabetes mellitus without complications; E78.00 Pure hypercholesterolemia, unspecified; I10 Essential (primary) hypertension; K59.00 Constipation, unspecified
CPT/HCPCS: 36415; 80053; 83036